=== PATIENT | female | born 1970 ===

== ENCOUNTER → 2023-12-20 12:52 | Outpatient (CLI) | payer BC, SELFPAY ==
--- NOTE | 2023-12-20 12:55 | DI.RAD_ITS ---
Exam(s) XR FINGER RT INDEX EXAM: XR FINGER RT INDEX CLINICAL HISTORY: M79.644 Pain in right fingers,index. TECHNIQUE: 2D digital imaging was performed. COMPARISON: No exams were available for comparison FINDINGS: 3 views No evidence of acute fracture or dislocation. No radiopaque foreign body. No osseous lesions nor er osions. IMPRESSION: No significant osseous findings in the 2nd-index finger. DATA REPOSITORY: RADIATION DOSE DELIVERED:
== END ==
PROVIDERS: Visit Provider Nurse Practitioner Family
DX: M79.644 Pain in right finger(s) (principal)
CPT/HCPCS: 73140

== ENCOUNTER 2023-12-25 18:25 | Emergency (ER) | payer BC, SELFPAY ==
[2023-12-25 18:28] VITALS: BP 142/84; PULSE 61; RESP 16; TEMP 36.7; O2SAT 98
--- NOTE | 2023-12-25 18:51 | ED.GENADUL_ITS ---
HPI General Mode of arrival: ambulatory . Date/Time Provider Initiated Documentation: 12/25/23 18:26 . Limitations to Documentation: no limitations . Information obtained by: patient and RN notes reviewed . History of Present Illness 53 year old F presents to the emergency department with the chief complaint of Headache, secondary to trauma, described as moderate, Quality is described as aching, and is localized to the head. Patient reports no radiation. Patient started experiencing this week(s) (1) and it has been intermittent. No relieving factors improve symptom(s), Patient did receive the following treatments prior to arrival, NSAID (This morning) Related Data Home Medications Medication Instructions Recorded Confirmed escitalopram oxalate 10 mg tablet 10 mg PO DAILY 12/25/23 12/25/23 (Lexapro) omeprazole 20 mg capsule,delayed 20 mg PO DAILY 12/25/23 12/25/23 release trazodone 50 mg tablet 50 mg PO QHS 12/25/23 12/25/23 Allergies Allergy/AdvReac Type Severity Reaction Status Date / Time prednisone AdvReac Mild Other (See Verified 12/25/23 18:32 Comment) General Stated Complaint: Headache SOBIA: 3 Review of Systems Constitutional Constitutional: Denies body ache(s), Denies chills, Denies fever(s), Reports headache(s), Reports lethargy, Reports malaise and Denies weakness Eyes Eyes: Denies change in vision ENT Ears, Nose, Mouth, and Throat: Denies dizziness, Reports headache(s) and Denies disequilibrium Cardiovascular Cardiovascular: Denies chest pain and Denies syncope Gastrointestinal Gastrointestinal: Denies nausea and Denies vomiting Neurologic Neurologic: Reports as per HPI, Denies dizziness, Denies syncope, Reports headache(s), Denies sensory deficit, Denies paresthesias, Denies tremor(s), Denies disequilibrium and Denies weakness Exam Const General: cooperative, healthy appearing, no acute distress and well groomed Orientation: alert, awake and oriented x3 HENMT Ears: hearing grossly normal bilaterally and TM's normal bilaterally General nose exam: external nose abnormal nasal abrasion (Left side) Face and sinus: face symmetric and ecchymosis on the left maxilla, lower lip and chin Mouth: oral mucosae normal and moist mucous membranes Teeth and gingiva: dentition normal Throat: posterior oropharynx normal Eyes Visual Alonzo: normal visual alonzo by confrontation Alignment and Position: alignment normal Periorbital: periorbital findings normal Eyelids: eyelids normal Sclera: sclerae normal Cornea: corneas normal Pupils: PERRL EOM: EOM intact bilaterally Neck Neck: normal visual inspection, full ROM, no lymphadenopathy and no meningeal signs Resp Effort & Inspection: normal respiratory effort and able to speak in complete sentences Auscultation: clear to auscultation bilaterally Cardio Rate: regular rate Rhythm: regular rhythm Heart Sounds: S1 normal and S2 normal Neuro General: patient alert, patient awake, patient oriented x3, gait normal, tone normal, moves all extremities, CN's II-XI intact bilaterally and not confused Cognition: normal cognition Speech: speech normal Motor: muscle tone normal throughout, strength 5/5 throughout, no movement abnormalities noted and no fasciculations Sensory Exam: no sensory deficits noted Coordination: [id number] test normal, Does not sway with eyes open, rapid alternating movement UE normal and rapid alternating movement LE normal Course Vital Signs Vital signs: Vital Signs Temperature 36.7 C 12/25/23 18:28 Pulse 61 12/25/23 18:28 Respiratory Rate 16 12/25/23 18:28 Blood Pressure 142/84 H 12/25/23 18:28 Pulse Oximetry 98 12/25/23 18:28 Temperature 36.7 C 12/25/23 18:28 Pulse 61 12/25/23 18:28 Respiratory Rate 16 12/25/23 18:28 Blood Pressure 142/84 H 12/25/23 18:28 Pulse Oximetry 98 12/25/23 18:28 Oxygen Delivery Method Room Air 12/25/23 18:28 Oxygen Flow Rate 0 12/25/23 18:28 Medical Decision Making Patient presenting to the emergency department for chief complaint of head injury and headache. Patient reports 1 week ago she was skiing and suffered a head injury. She went to the urgent care and they thought she had a mild concussion but had okay neurological exam at that time. Patient took 1 day off of work and returned to work with noting significant increase in fatigue and need of napping even while at work, some mild delayed cognition, and today has developed a headache with even more fatigue. Patient denies any numbness tingling, extremity deficiencies or weakness, patient denies any contributing past medical history,. Physical exam is positive for facial ecchymosis and some tenderness over areas of ecchymosis, normal cranial nerve exam, normal neuroexam, otherwise unremarkable exam. Will plan on performing head face and neck CT imaging given mechanism of injury reported by patient along with significant facial ecchymosis. Otherwise we will treat with Toradol and IV fluids. I suspect postconcussive symptoms being greatest differential but also considered intracranial injury, facial bone fracture. Review of radiological imaging along with radiologist interpretation shows no acute findings. Patient reassessed and did state improvement of symptoms. Discussed conservative management along with both physical and mental rest over the next 3 days and then to slowly increase activity as tolerated as I feel this is why she did have some worsening of symptoms. After discussion of diagnosis and plan of care patient has no further needs, questions, or concerns and states clear understanding to return to the emergency department for any worsening symptoms. This documentation was generated using [employer] dictation system, please disregard any oddities of phrase or misspellings. Imaging Data Radiologic Study: Imaging: CT Scan Radiologist's impression: Exam(s) PROCEDURE INFORMATION: Exam: CT Head Without Contrast Exam date and time: 12/25/2023 7:36 PM Age: 53 years old Clinical indication: Injury or trauma; Fall; Blunt trauma (contusions or hematomas); Consciousness not specified; Other: Lip; Injury date: 12/25/23; Injury details: Fell on face skiing TECHNIQUE: Imaging protocol: Computed tomography of the head without contrast. Radiation optimization: All CT scans at this facility use at least one of these dose optimization techniques: automated exposure control; mA and/or kV adjustment per patient size (includes targeted exams where dose is matched to clinical indication); or iterative reconstruction. COMPARISON: No relevant prior studies available. FINDINGS: Brain: No acute intracranial hemorrhage, mass-effect, midline shift, or extra-axial collection is seen. The carson white matter differentiation appears preserved. Cerebral ventricles: The ventricular system and basilar cisterns appear appropriate in size and configuration. Paranasal sinuses: CT imaging through the facial bones was obtained concurrently and has been dictated separately. Mastoid air cells: The mastoid air cells appear well-aerated. Auditory system: The middle ear cavities appear clear. Bones/joints: The bony calvarium appears intact. No depressed skull fracture is seen. Soft tissues: No gross focal scalp hematoma is seen. IMPRESSION: No acute intracranial hemorrhage or depressed skull fracture. PROCEDURE INFORMATION: Exam: CT Maxillofacial Without Contrast Exam date and time: 12/25/2023 7:36 PM Age: 53 years old Clinical indication: Injury or trauma; Fall; Blunt trauma (contusions or hematomas); Consciousness not specified; Other: Lip; Injury date: 12/25/23; Injury details: Fell on face skiing TECHNIQUE: Imaging protocol: Computed tomography of the face without contrast. Radiation optimization: All CT scans at this facility use at least one of these dose optimization techniques: automated exposure control; mA and/or kV adjustment per patient size (includes targeted exams where dose is matched to clinical indication); or iterative reconstruction. COMPARISON: No relevant prior studies available. FINDINGS: Orbital cavities: The globes and intraorbital structures appear grossly intact. Bones/joints: No acute facial fracture is seen. Paranasal sinuses: The paranasal sinuses appear well aerated. No air-fluid levels are seen. Soft tissues: No gross focal soft tissue hematoma is seen in the face. Nasal cavity: There is minimal leftward deviation of the nasal septum. IMPRESSION: No acute facial fracture is seen. PROCEDURE INFORMATION: Exam: CT Cervical Spine Without Contrast Exam date and time: 12/25/2023 7:36 PM Age: 53 years old Clinical indication: Injury or trauma; Fall; Blunt trauma (contusions or hematomas); Consciousness not specified; Other: Lip; Injury date: 12/25/23; Injury details: Fell on face skiing TECHNIQUE: Imaging protocol: Computed tomography of the cervical spine without contrast. Radiation optimization: All CT scans at this facility use at least one of these dose optimization techniques: automated exposure control; mA and/or kV adjustment per patient size (includes targeted exams where dose is matched to clinical indication); or iterative reconstruction. COMPARISON: No relevant prior studies available. FINDINGS: Bones/joints: No acute cervical fracture or malalignment is seen. C2-C3: Disc height preserved. No significant cervical stenosis or foraminal narrowing. C3-C4: Small broad-based posterior disc bulge. No significant cervical stenosis or left-sided foraminal narrowing. Mild uncovertebral hypertrophy on the right with mild right-sided foraminal narrowing. C4-C5: Mild loss of disc height. Mild posterior osteophytic ridging. No significant central canal narrowing or significant neural foraminal narrowing. C5-C6: Mild loss of disc height. Mild posterior osteophytic ridging. Small broad-based posterior disc bulge, eccentric to the right, image 290 of series 16. No significant central canal narrowing. No significant foraminal narrowing. C6-C7: Disc height relatively preserved. Mild posterior osteophytic ridging with mild bilateral uncovertebral hypertrophy. No significant cervical stenosis. No significant foraminal narrowing. C7-T1: Disc height preserved. No significant cervical stenosis or foraminal narrowing. Thyroid: Normal-sized thyroid gland. Lungs: The lung apices appear clear. Soft tissues: Within the limits of the exam, no gross soft tissue fluid collection is seen in the neck. IMPRESSION: No acute cervical fracture or malalignment is seen. Dictated and Authenticated by: Dino Levy MD. Quality:SDOH Health Related Social Needs: No Data to Display PFSH All Active Problems (Updated 12/25/23 @ 20:15 by Vincent Daly NP) Concussion (Acute) Social History Smoking/Tobacco Use Status: Never Smoking risk assessment performed?: Yes Alcohol Intake: current Alcohol Intake frequency: a few times a week Substance use type: does not use Do you feel safe at home: Yes Do you feel safe in your relationship?: Yes Discharge Plan Disposition Patient Disposition: Home Discharge Details Clinical Impression: Concussion Primary Care Provider: Unknown,Unknown ED Provider: Vincent Daly Home Meds and New Rx's Prescriptions: Continued escitalopram oxalate [Lexapro] 10 mg tablet 10 mg PO DAILY trazodone 50 mg tablet 50 mg PO QHS omeprazole 20 mg capsule,delayed release(DR/EC) 20 mg PO DAILY Discharge Instructions Instructions: Concussion (ED) Additional Instructions: You may continue to take tril-xhn-vcjptoa pain medication as needed for discomfort. Please stay well-hydrated and get both physical and mental rest over the next 3 days and then slowly increase activities as tolerated. If you have any new or significant worsening of symptoms return to the emergency department for reassessment otherwise follow-up with primary care provider if you are not improving Stand Alone Forms: Work Release Referrals: Primary Care Provider [Outside] - 5 days (If not improving) Discharge Data Discharge Date/Time-TO BE ENTERED AT DEPARTURE: 12/25/23 20:33
[2023-12-25] MEDS: Normal Saline 1,000 ML 1000 ML IV (19:05)
[2023-12-25] MEDS: Ketorolac 15 MG/ML VIAL IVP (19:06)
--- NOTE | 2023-12-25 19:45 | DI.CT_ITS ---
Exam(s) CT HEAD CERV SPINE FACIAL WO EXAM: CT HEAD CERV SPINE FACIAL WO CLINICAL HISTORY: facial/head trauma. TECHNIQUE: Imaging Protocol: Axial computed tomography images with coronal and sagittal reformatted images were created and reviewed COMPARISON: No exams were available for comparison FINDINGS: CT Head: Ventricles and Extra axial spaces: Normal in size and morphology for the patient's age. Hemorrhage: None. Cerebral parenchyma: No evidence of acute hemorrhage or acute infarct. Midline shift: None. Brainstem/Cerebellum: Normal. Calvarium: Normal. Visualized Paranasal sinuses/Mastoids: Clear. Soft Tissues: Unremarkable. CT Face: Facial Bones: No fracture is noted in facial bones. Sinuses and Mastoids: Unremarkable. Globes, extraocular muscles, optic nerves and retrobulbar fat: Normal. Upper aerodigestive tract: Normal. Mandible and bilateral temporomandibular joints: Normal. Soft tissues: No visible hematoma. CT Cervical Spine: Bones: No acute fracture or subluxation. Mild degenerative changes. Soft Tissues: Unremarkable. Lung Apices: Clear. IMPRESSION: 1. No acute intracranial process. 2. No acute fracture or subluxation in the cervical spine. 3. No acute facial fracture. RADIATION DOSE DELIVERED: Total DLP DATA REPOSITORY: All CT scans at this facility are submitted to the National Radiology Data Registry (NRDR) Dose Index Registry (DIR) with the [employer] (A[employer]). RADIATION OPTIMIZATION: All CT scans at this facility use at least one of these dose optimization te chniques: automated exposure control; mA and/or kV adjustment per patient size (includes targeted exa ms where dose is matched to clinical indication); or iterative reconstruction.
--- NOTE | 2023-12-25 20:00 | DI.VRAD_ITS ---
PROCEDURE INFORMATION: Exam: CT Head Without Contrast Exam date and time: 12/25/2023 7:36 PM Age: 53 years old Clinical indication: Injury or trauma; Fall; Blunt trauma (contusions or hematomas); Consciousness not specified; Other: Lip; Injury date: 12/25/23; Injury details: Fell on face skiing TECHNIQUE: Imaging protocol: Computed tomography of the head without contrast. Radiation optimization: All CT scans at this facility use at least one of these dose optimization techniques: automated exposure control; mA and/or kV adjustment per patient size (includes targeted exams where dose is matched to clinical indication); or iterative reconstruction. COMPARISON: No relevant prior studies available. FINDINGS: Brain: No acute intracranial hemorrhage, mass-effect, midline shift, or extra-axial collection is seen. The carson white matter differentiation appears preserved. Cerebral ventricles: The ventricular system and basilar cisterns appear appropriate in size and configuration. Paranasal sinuses: CT imaging through the facial bones was obtained concurrently and has been dictated separately. Mastoid air cells: The mastoid air cells appear well-aerated. Auditory system: The middle ear cavities appear clear. Bones/joints: The bony calvarium appears intact. No depressed skull fracture is seen. Soft tissues: No gross focal scalp hematoma is seen. IMPRESSION: No acute intracranial hemorrhage or depressed skull fracture. PROCEDURE INFORMATION: Exam: CT Maxillofacial Without Contrast Exam date and time: 12/25/2023 7:36 PM Age: 53 years old Clinical indication: Injury or trauma; Fall; Blunt trauma (contusions or hematomas); Consciousness not specified; Other: Lip; Injury date: 12/25/23; Injury details: Fell on face skiing TECHNIQUE: Imaging protocol: Computed tomography of the face without contrast. Radiation optimization: All CT scans at this facility use at least one of these dose optimization techniques: automated exposure control; mA and/or kV adjustment per patient size (includes targeted exams where dose is matched to clinical indication); or iterative reconstruction. COMPARISON: No relevant prior studies available. FINDINGS: Orbital cavities: The globes and intraorbital structures appear grossly intact. Bones/joints: No acute facial fracture is seen. Paranasal sinuses: The paranasal sinuses appear well aerated. No air-fluid levels are seen. Soft tissues: No gross focal soft tissue hematoma is seen in the face. Nasal cavity: There is minimal leftward deviation of the nasal septum. IMPRESSION: No acute facial fracture is seen. PROCEDURE INFORMATION: Exam: CT Cervical Spine Without Contrast Exam date and time: 12/25/2023 7:36 PM Age: 53 years old Clinical indication: Injury or trauma; Fall; Blunt trauma (contusions or hematomas); Consciousness not specified; Other: Lip; Injury date: 12/25/23; Injury details: Fell on face skiing TECHNIQUE: Imaging protocol: Computed tomography of the cervical spine without contrast. Radiation optimization: All CT scans at this facility use at least one of these dose optimization techniques: automated exposure control; mA and/or kV adjustment per patient size (includes targeted exams where dose is matched to clinical indication); or iterative reconstruction. COMPARISON: No relevant prior studies available. FINDINGS: Bones/joints: No acute cervical fracture or malalignment is seen. C2-C3: Disc height preserved. No significant cervical stenosis or foraminal narrowing. C3-C4: Small broad-based posterior disc bulge. No significant cervical stenosis or left-sided foraminal narrowing. Mild uncovertebral hypertrophy on the right with mild right-sided foraminal narrowing. C4-C5: Mild loss of disc height. Mild posterior osteophytic ridging. No significant central canal narrowing or significant neural foraminal narrowing. C5-C6: Mild loss of disc height. Mild posterior osteophytic ridging. Small broad-based posterior disc bulge, eccentric to the right, image 290 of series 16. No significant central canal narrowing. No significant foraminal narrowing. C6-C7: Disc height relatively preserved. Mild posterior osteophytic ridging with mild bilateral uncovertebral hypertrophy. No significant cervical stenosis. No significant foraminal narrowing. C7-T1: Disc height preserved. No significant cervical stenosis or foraminal narrowing. Thyroid: Normal-sized thyroid gland. Lungs: The lung apices appear clear. Soft tissues: Within the limits of the exam, no gross soft tissue fluid collection is seen in the neck. IMPRESSION: No acute cervical fracture or malalignment is seen. Dictated and Authenticated by: Dino Levy MD. Ordering:JOSE Kaur MD
== END 2023-12-25 20:33 | disposition home or self-care (01) ==
PROVIDERS: Emergency Provider Nurse Practitioner Family
DX: S06.0X0A Concussion without loss of consciousness, initial encounter (principal)
CPT/HCPCS: 96361; 96374; 99284; 70450; 70486; 72125; J1885

== ENCOUNTER 2024-03-23 15:52 | Outpatient (REF) | payer BC, SELFPAY ==
[2024-03-23 14:38] LABS: HCT 43.9 % (36.0-46.0); HGB 14.4 g/dL (11.2-15.7); MCH 29.7 pg (27.0-33.0); MCHC 32.8 % (32.0-36.0); MCV 91 fL (80-95); MPV 11.5 fL (8.0-11.0); Platelet Count 222 10^3/uL (130-400); RBC 4.85 10^6/uL (3.93-5.22); RDW 12.7 % (11.7-14.6); RDW-SD 42.7 fL; WBC 5.34 10^3/uL (4.4-10.8)
[2024-03-23 14:59] LABS: Anion Gap 7.1 mmol/L (3-11); BUN 18 mg/dL (7-18); CO2 29.9 mmol/L (21.0-32.0); CREATININE 0.9 mg/dL (0.55-1.02); Calcium 9.6 mg/dL (8.5-10.1); Calculated LDL 110 mg/dL (<100); Chloride 105 mmol/L (98-107); Cholesterol 191 mg/dL (<200); Glucose 100 mg/dL (74-106); HDL Cholesterol 65 mg/dL (40-60); Potassium 4.5 mmol/L (3.5-5.1); Sodium 142 mmol/L (136-145); Triglyceride 82 mg/dL (<150)
[2024-03-24 09:22] LABS: FSH 83.1 mIU/mL (See Note)
[2024-03-24 09:58] LABS: Hepatitis C Ab w Rflx HCV PCR Negative (Negative)
[2024-03-24 10:11] LABS: HIV-1/2 Ag & Ab Screen Negative (Negative)
== END 2024-03-23 15:53 | disposition home or self-care (01) ==
LOC: NCHCN 15:52
PROVIDERS: Visit Provider Family Medicine
DX: K40.90 Unilateral inguinal hernia, without obstruction or gangrene, not specified as recurrent (principal); N91.2 Amenorrhea, unspecified; D64.9 Anemia, unspecified; Z13.220 Encounter for screening for lipoid disorders; Z11.59 Encounter for screening for other viral diseases
CPT/HCPCS: 80048; 80061; 85027; 86803; 87389; 83001

== ENCOUNTER → 2024-05-08 02:01 | Outpatient (CLI) | payer BC, SELFPAY ==
--- NOTE | 2024-05-08 | DI.MAMMO_ITS ---
Exam(s) MAMMO SCREENING EXAM: MAMMO SCREENING CLINICAL HISTORY: SCREENING, Z12.31 TECHNIQUE: Bilateral full field digital CC and MLO mammographic images were obtained with 3D tomosyn thesis and utilizing computer aided detection (CAD). COMPARISON: Available for comparison. FINDINGS: Masses/Architectural Distortion: There is again seen a nodule in the right breast with a biopsy clip in the retroareolar region. This is stable. No new nodules. No areas of architectural distortion. Microcalcifications: No suspicious pleomorphic-type are seen. Skin Thickening/Nipple Retraction: None. IMPRESSION: 1. No significant interval change with no specific features of malignancy noted. 2. Unless there is more urgent need, screening mammography is recommended, as per [employer] guidelines. BI-RADS Category 2 - Benign Findings Breast Density - Category C - Heterogeneously dense Breast density category C or D implies that the patient has dense breast tissue. Dense breast tissue is very common and is not abnormal but dense breast tissue can make it harder to find cancer on a ma mmogram. Also, dense breast tissue may increase their breast cancer risk. This information about the result of the mammogram report was provided to the patient to raise their awareness. Use this report when you speak with the patient about their risks for breast cancer, which includes their family hist ory. At that time, you may recommend for more screening tests (Ultrasound or MRI) as they might be us eful based on their risk. A negative radiographic report should not delay biopsy if a dominant or clinically suspicious mass is present. Up to ten percent of cancers are not identified on mammography. A negative report may reinforce clinical impression. Adenosis and dense breasts may obscure an underlying neoplasm. False positive reports average 6 to 10%. Patient will receive a letter notifying them of these results.
== END ==
PROVIDERS: Visit Provider Family Medicine
DX: Z12.31 Encounter for screening mammogram for malignant neoplasm of breast (principal); R92.333 Mammographic heterogeneous density, bilateral breasts
CPT/HCPCS: 77063; 77067

== ENCOUNTER 2024-06-26 21:14 | Outpatient (REF) | payer BC, SELFPAY ==
--- OUTSIDE RECORDS SUMMARY | 2024-06-26 21:17 | XMS_ITS | Encounter Summary ---
Author Organization [facility]ly [facility], Later [facility] Address [facility] [place] [address] Care Team Providers Care Hemodialysis Charge Nurse Name Role Phone Skye Nicole MD Primary Care Provider [phone] Reason for Visit * Reason Comments Establish Care * Consultation (Routine) - Authorized Specialty Diagnoses / Procedures Referred By Contac t Referred To Contact General Surgery Diagnoses Direct left inguinal hernia Unilateral inguinal hernia without obstruction or gangrene, recurrence not specified ? SURGICAL INTERVENTION NEEDED PLEASE SCHED WITHIN 3-4 WEEKS Skye Nicole MD [address] [place] [address] [facility] Gen Surgery [address] [place] [address] Referral ID Status Reason Start Date Expiration Date Visits Requested Visits Authorized [id number] Authorized Consult, Test & Treat PCP Updated and/or Approved 03/31/2024 03/31/2025 6 6 Encounter Details Date Type Department Care Team (Late st Contact Info) Description 04/11/2024 10:30 AM EDT Office [place] [address] Ruthy Calvin MD [facility] [place] [address] Non-recurrent unilateral inguinal hernia without obstruction or gangrene Social History Tobacco Use Types Packs/Day Years Used Date Smoking Tobacco: Never Assessed Sex and Gender Information Value Date Recorded Sex Assigned at Female 2024 10:36 AM EDT Gender Identity Female 2024 10:36 AM EDT Sexual Orientation Not on file documented as of this encounter Last Filed Vital Signs Vital Sign Reading Time Taken Comments Blood Pressure 109/69 04/11/2024 10:30 AM EDT Pulse 66 04/11/2024 10:30 AM EDT Temperature - - Respiratory Rate - - Oxygen Saturation 99% 04/11/2024 10:30 AM EDT Inhaled Oxygen Concentration - - Weight 65.8 kg (145 lb) 04/11/2024 10:30 AM EDT Height 165.1 cm (5' 5) 04/11/2024 10:30 AM EDT Body Mass Index 24.13 04/11/2024 10:30 AM EDT documented in this encounter Progress Notes * Ruthy Calvin MD - 04/11/2024 10:30 AM EDT [facility] General Surgery History and Physical History of Present Illness: Nabeel Brower is a 54 y.o. female referred by Dr. Skye Nicole for an inguinal hernia. Ms. Brower does not remember a particular inciting incident. She says that about a year ago she was in the shower and noticed a bulge. She is quite active and bikes a lot. She has been told that perhaps it is from one of these activities. She has not had any obstructive episodes. It is reducible. She denies pain. She previously saw a surgeon who recommended a repair. However she moved and did not end up having surgery. 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 Past Surgical History: Past Surgical History: Procedure Laterality Date SECTION x2 MYOMECTOMY Medications: Current Outpatient Medications on File Prior to Visit Medication Sig Dispense Refill traZODone (Desyrel) 50 mg tablet Take 50 mg by mouth nightly. escitalopram (Lexapro) 10 mg tablet Take 10 mg by mouth daily. No current facility-administered medications on file prior to visit. Allergies: Prednisone Family History: No family history on file. No history of bleeding disorders, clotting disorders, or complications from anesthesia. Social History: Review of Systems: A 10 point review of systems was performed. Pertinent positives and negatives are listed in the above HPI. All other systems are negative. Physical Exam: Vital Signs: BP 109/69 (BP Location (NBP): Right arm, Patient Position: Sitting, BP Cuff Sizes: Adult (25-34 cm)) Pulse 66 Ht 165.1 cm (5' 5) Wt 65.8 kg (145 lb) SpO2 99% BMI 24.13 kg/m?? General appearance: Alert and oriented, appears stated age, well groomed HEENT: No scleral icterus, normocephalic, atraumatic Neck: Trachea midline Skin: No jaundice Heart: Regular rate and rhythm Lungs: Symmetric chest rise, no distress, clear breath sounds bilaterally Abdomen: Non distended, soft, non tender to palpation, left sided reducible inguinal hernia, no right inguinal hernia. Extremities: Moves all four extremities, no gross deformity. Assessment and Recommendation: A 54 y.o.-old female with a left inguinal hernia. The patient was educated on the natural history of hernias and approaches for repair. Nabeel Brower was educated on the indications, risks, and benefits of surgery. she understands these risks include but are not limited to general risks such as OH, stroke, PE, DVT and even , andrisks directly related to surgery such as hernia recurrence, chronic pain, infection, bleeding, andpossibility of surrounding organ injury. We discussed what to expect after surgery including lifting restrictions of no more than 20 lbs for 4 weeks. She would like to discuss with her and will call or message us when she is ready to schedule surgery. Will plan on a laparoscopic vs robotic left possible right inguinal hernia repair with mesh. Thank you for the referral and for allowing me to participate in the care of Nabeel Brower. Ruthy Calvin MD, FACS associate professor of medicine Division of Minimally Invasive Surgery [phone] * Amita Fishman - 04/11/2024 10:30 AM EDTSjumana: Asymptomatic Direct L Inguinal Hernia [facility] General Surgery History and Physical History of Present Illness: Nabeel Brower is a 54 y.o. 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 Skye Nicole in [place], [place] for an asymptomatic direct L inguinal hernia. Ms. Brower first noticed a bulge in the L groin region about one year ago while showering. The bulge disappears when she lies down, and has not caused any pain in the past nor present. She is not experiencing any nausea/vomiting, diarrhea/constipation, or other obstructive symptoms, except for some reflux which began long before she noticed her hernia during her first around 15 years ago. Ultrasound from 05/14/22 revealed a L inguinal hernia containing fat medial to the inferior epigastric vessels, with bowel intermittently present on standing with Valsalva maneuver and neck measuring up to 1.[address] Ann for this issue at the [facility] who suspected her active lifestyle/biking may have contributed to the hernia. Dr. Ann recommended surgical repair, but [place] prior to follow up. 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 Past Surgical History: No past surgical history on file. See HPI Medications: Current Outpatient Medications on File Prior to Visit Medication Sig Dispense Refill traZODone (Desyrel) 50 mg tablet Take 50 mg by mouth nightly. escitalopram (Lexapro) 10 mg tablet Take 10 mg by mouth daily. No current facility-administered medications on file prior to visit. Allergies: Prednisone Family History: No family history on file. No history of bleeding disorders, clotting disorders, or complications from anesthesia. 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 Pertinent positives and negatives are listed in the above HPI. All other systems are negative. Physical Exam: Vital Signs: BP 109/69 (BP Location (NBP): Right arm, Patient Position: Sitting, BP Cuff Sizes: Adult (25-34 cm)) Pulse 66 Ht 165.1 cm (5' 5) Wt 65.8 kg (145 lb) SpO2 99% BMI 24.13 kg/m?? General appearance: Alert and oriented, appears stated age, well groomed HEENT: No scleral icterus, normocephalic, atraumatic Neck: Trachea midline Skin: No jaundice Heart: Regular rate and rhythm Lungs: Symmetric chest rise, no distress, clear breath sounds bilaterally Abdomen: Non distended, soft, non tender to palpation, some lipomatous regions but no visible scars, small reducible L inguinal hernia appreciated, no R inguinal hernia appreciated Extremities: Moves all four extremities, no gross deformity. Imaging: Ultrasound from 05/14/22 revealed a L inguinal hernia containing fat medial to the inferiorepigastric vessels, with bowel intermittently present on standing with Valsalva maneuver and neck measuring up to 1.6 cm Assessment and Recommendation: A 54 y.o.-old female with small, reducible L sided inguinal hernia, found to intermittently containbowel by US on 05/14/22. The patient was educated on the natural history of hernias, approaches for repair and we reviewed her imaging results together. Nabeel Brower was educated on the indications, risks, and benefits of surgery. She understands these risks include but are not limited to general risks such as OH, stroke, PE, DVT and even , andrisks directly related to surgery such as hernia recurrence, chronic pain (10%), infection, bleeding, and possibility of surrounding organ injury. We discussed what to expect after surgery including l ifting restrictions of no more than 20 lbs for 4 weeks. She would like to discuss timing of the procedure with her and will call us to schedule theprocedure when she is ready (laparoscopic or robotic repair with mesh placement). Thank you for the referral and for allowing me to participate in the care of Nabeel Brower. Amita Fishman [employer] [employer] [facility] MS-4 Minimally Invasive Surgery Service documented in this encounter Plan of Treatment Upcoming Encounters Date Type Department Care Team (Latest Contact Info) Description 09/05/2024 7:30 AM EDT Hospital Encounter [place] [address] Ruthy Calvin MD [facility] [place] [address] 09/05/2024 7:30 AM EDT - 09/05/2024 10:14 AM EDT Surgery [place] [address] Ruthy Calvin MD [facility] [place] [address] LAPAROSCOPIC HERNIA REPAIR, INITIAL INGUINAL (WRVU 6.36) 12/04/2024 3:30 PM EST Office Visit Dermatology at [address] [address] Helen Mary MD [facility] [address] [place] [address] Scheduled Orders Name Type Priority Associated Diagnoses Orde r Schedule SURGICAL CASE REQUEST NO POSTOP PAIN: LAPAROSCOPIC HERNIA REPAIR, INITIAL INGUINAL (WRVU 6.36) Procedures Routine Non-recurrent unilateral inguinal hernia without obstruction or gangrene One Time for 1 Occurrences starting 04/11/2024 until 04/11/2024 Scheduled Procedures Name Priority Associated Diagnoses Date/Ti me LAPAROSCOPIC HERNIA REPAIR, INITIAL INGUINAL (WRVU 6.36) Yes Non-recurrent unilateral inguinal hernia without obstruction or gangrene 09/05/2024 7:30 AM EDT MODIFIER MESH,BARD,3D MAX REG Yes Non-recurrent unilateral inguinal hernia without obstruction or gangrene 09/05/2024 7:30 AM EDT documented as of this encounter Visit Diagnoses Diagnosis Non-recurrent unilateral inguinal hernia without obstruction or gangrene Non-recurrent unilateral inguinal hernia without obstruction or gangrene documented in this encounter Care Teams Hemodialysis Charge Nurse Relationship Specialty Start Date End Date Skye Nicole MD [address] [place] [address] PCP - General Family Medicine 04/11/24 documented as of this encounter
--- OUTSIDE RECORDS SUMMARY | 2024-06-26 21:17 | XMS_ITS | Clinical Summary ---
Author Organization [facility] Address [facility] [place] [address] Care Team Providers Care Appliance Technician Name Role Phone Skye Nicole MD Primary Care Provider [phone] Allergies Active Allergy Reactions Criticality Noted Date Comments Prednisone Other (See Comments) 04/11/2024 Doesn't sleep Medications Medication Sig Dispensed Refills Start Date End Date Status traZODone (Desyrel) 50 mg tablet Take 50 mg by mouth nightly. Active escitalopram (Lexapro) 10 mg tablet Take 10 mg by mouth daily. Active Encounters Date Type Department Care Team Description 06/26/2024 1:45 PM EDT Office [place] [address] Ruthy Calvin MD Non-recurrent unilateral inguinal hernia without obstruction or gangrene 06/25/2024 Travel 04/11/2024 10:30 AM EDT Office [place] [address] Ruthy Calvin MD Non-recurrent unilateral inguinal hernia without obstruction or gangrene 2024 Travel 03/31/2024 Transcribe Orders eDH Incoming Referrals [phone] Skye Nicole MD Direct left inguinal hernia; Unilateral inguinal hernia without obstruction or gangrene, recurrence not specified 03/31/2024 Transcribe Orders eDH Incoming Referrals [phone] Skye Nicole MD Disorder of skin and subcutaneous tissue from Last 3 Months Social History Tobacco Use Types Packs/Day Years Used Date Smoking Tobacco: Never Assessed Sex and Gender Information Value Date Recorded Sex Assigned at Female 2024 10:36 AM EDT Gender Identity Female 2024 10:36 AM EDT Sexual Orientation Not on file Last Filed Vital Signs Vital Sign Reading Time Taken Comments Blood Pressure 109/69 04/11/2024 10:30 AM EDT Pulse 66 04/11/2024 10:30 AM EDT Temperature 36.8 ??C (98.2 ??F) 06/26/2024 2:01 PM ED T Respiratory Rate - - Oxygen Saturation 99% 04/11/2024 10: 30 AM EDT Inhaled Oxygen Concentration - - Weight 68.4 kg (150 lb 14.4 oz) 06/26/2024 2:01 PM EDT Height 165.1 cm (5' 5) 06/26/2024 2:01 PM EDT Body Mass Index 25.11 06/26/2024 2:01 PM EDT Plan of Treatment Upcoming Encounters Date Type Department Care Team (Latest Contact Info) Description 09/05/2024 7:30 AM EDT Hospital Encounter [place] [address] Ruthy Calvin MD [facility] [place] [address] 09/05/2024 7:30 AM EDT - 09/05/2024 10:14 AM EDT Surgery [place] [address] Ruthy Calvin MD [facility] [place] [address] LAPAROSCOPIC HERNIA REPAIR, INITIAL INGUINAL (WRVU 6.36) 12/04/2024 3:30 PM EST Office Visit Dermatology at [facility] [address] [address] Helen Mary MD [facility] DR SHAIN[address] [place] [address] Scheduled Procedures Name Priority Associated Diagnoses Date/Ti me LAPAROSCOPIC HERNIA REPAIR, INITIAL INGUINAL (WRVU 6.36) Yes Non-recurrent unilateral inguinal hernia without obstruction or gangrene 09/05/2024 7:30 AM EDT MODIFIER MESH,BARD,3D MAX REG Yes Non-recurrent unilateral inguinal hernia without obstruction or gangrene 09/05/2024 7:30 AM EDT Health Maintenance Due Date Last Done Comments CT Colonography 1972 Colonoscopy 1972 Colorectal Cancer Screening 1972 FIT DNA 1972 FIT 1972 Sigmoidoscopy (10 year) with FIT yearly 1972 Sigmoidoscopy 1972 HIV screen 1990 Hepatitis C Screening 1990 Hepatitis B vaccine (0-59 yrs) (1) 1991 Tdap adult 1991 Tetanus vaccine 1991 HPV test 2002 PAP Smear 2002 Breast Cancer Share Decision Needed 2012 Breast Cancer screening 2012 Diabetes Screening (HgbA1C or Glucose) 2012 Zoster vaccine (1 of 2) 2022 Covid-19 Vaccine (1 - season) 2023 Influenza (Flu) vaccine (1 o f 1 - Influenza standard series) 07/16/2024 Care Teams Appliance Technician Relationship Specialty Start Date End Date Skye Nicole MD [address] [place] [address] PCP - General Family Medicine 04/11/24
--- OUTSIDE RECORDS SUMMARY | 2024-06-26 21:17 | XMS_ITS | Encounter Summary ---
Author Organization [facility] [place] [address] Care Team Providers Care Legal Support Specialist Name Role Phone Unavailable Primary Care Provider Unavailabl e Encounter Details Date Type Department Care Team (Late st Contact Info) Description 12/25/2023 Ancillary Procedure [place] [phone] Juan Toussaint DDS [address] [place] [address] Social History Tobacco Use Types Packs/Day Years Used Date Smoking Tobacco: Never Assessed Sex and Gender Information Value Date Recorded Sex Assigned at Female 2024 10:36 AM EDT Gender Identity Female 2024 10:36 AM EDT Sexual Orientation Not on file documented as of this encounter Plan of Treatment Upcoming Encounters Date Type Department Care Team (Latest Contact Info) Description 09/05/2024 7:30 AM EDT Hospital Encounter [place] [address] Ruthy Calvin MD [facility] [place] [address] 09/05/2024 7:30 AM EDT - 09/05/2024 10:14 AM EDT Surgery [place] [address] Ruthy Calvin MD [facility] [place] [address] LAPAROSCOPIC HERNIA REPAIR, INITIAL INGUINAL (WRVU 6.36) 12/04/2024 3:30 PM EST Office Visit Dermatology at [facility] [address] [place] [address] Helen Mary MD [facility] [place] [address] Scheduled Procedures Name Priority Associated Diagnoses Date/Ti me LAPAROSCOPIC HERNIA REPAIR, INITIAL INGUINAL (WRVU 6.36) Yes Non-recurrent unilateral inguinal hernia without obstruction or gangrene 09/05/2024 7:30 AM EDT MODIFIER MESH,BARD,3D MAX REG Yes Non-recurrent unilateral inguinal hernia without obstruction or gangrene 09/05/2024 7:30 AM EDT documented as of this encounter Procedures Procedure Name Priority Date/Time Associated Diagnosis Comments FILM LIBRARY STORAGE ONLY CT HEAD AND SPINE Routine 12/25/2023 12:00 AM EST documented in this encounter Results * Film Library- Storage Only CT Head And Spine (12/25/2023 12:00 AM EST) Narrative [facility] - 01/03/2024 3:57 PM EST This exam is auto-finalizing. It's purpose is for storage only. Juan Toussaint DDS G FILM LIBRARY ORD ERABLES [place], [place] documented in this encounter Visit Diagnoses Not on filedocumented in this encounter
--- OUTSIDE RECORDS SUMMARY | 2024-06-26 21:17 | XMS_ITS | Encounter Summary ---
Author Organization [facility] Address [facility] [place] [address] Care Team Providers Care Consumer Loan Underwriter Name Role Phone Skye Nicole MD Primary Care Provider [phone] Reason for Visit * Reason Comments Follow-up Encounter Details Date Type Department Care Team (Late st Contact Info) Description 06/26/2024 1:45 PM EDT Office Visit [place] [address] Ruthy Calvin MD [facility] [place] [address] Non-recurrent unilateral inguinal hernia without obstruction or [...] Sign Reading Time Taken Comments Blood Pressure - - Pulse - - Temperature 36.8 ??C (98.2 ??F) 06/26/2024 2:01 PM ED T Respiratory Rate - - Oxygen Saturation - - Inhaled Oxygen Concentration - - Weight 68.4 kg (150 lb 14.4 oz) 06/26/2024 2:01 PM EDT Height 165.1 cm (5' 5) 06/26/2024 2:01 PM EDT Body Mass Index 25.11 06/26/2024 2:01 PM EDT documented in this encounter Progress Notes * Ruthy Calvin MD - 06/26/2024 1:45 PM EDT This appointment was scheduled in error. Mrs. Lees needed to schedule surgery and so met with our surgery schedulers. documented in this encounter Plan of Treatment Upcoming Encounters Date Type Department Care Team (Latest Contact Info) Description 09/05/2024 7:30 AM EDT Hospital Encounter [place] [address] Ruthy Calvin MD [facility] [place] [address] 09/05/2024 7:30 AM EDT - 09/05/2024 10:14 AM EDT Surgery [place] [address] Ruthy Calvin MD [facility] [place] [address] LAPAROSCOPIC HERNIA REPAIR, INITIAL INGUINAL (WRVU 6.36) 12/04/2024 3:30 PM EST Office Visit Dermatology at [address] [address] Helen Mary MD [facility] DR [place] [address] Scheduled Procedures Name Priority Associated Diagnoses Date/Ti [...] gangrene documented in this encounter Care Teams Consumer Loan Underwriter Relationship Specialty Start Date End Date Skye Nicole MD [address] [place] [address] PCP - General Family Medicine 04/11/24 documented as of this encounter
--- OUTSIDE RECORDS SUMMARY | 2024-06-26 21:17 | XMS_ITS | Clinical Summary ---
Author Organization [facility] Address [address] [place] [address] Care Team Providers Care Senior Oracle Soa Developer Name Role Phone Unavailable Primary Care Provider Unavailabl e Social History Tobacco Use Types Packs/Day Years Used Date Smoking Tobacco: Never Assessed Sex and Gender Information Value Date Recorded Sex Assigned at Not on file Gender Identity Not on file Sexual Orientation Not on file Plan of Treatment Health Maintenance Due Date Last Done Comments Hepatitis B Vaccine (1 of 3 - 19+ 3-dose series) 04/10 COVID-19 Vaccine (2022- season) 2023 Hepatitis C Screen Completed 03/23/2024 Procedures Procedure Name Priority Date/Time Associated Diagnosis Comments HEPATITIS C AB W REFLEX TO HCV RNA BY PCR Routine 03/23/2024 10:00 EDT from Last 3 Months or Most Recently Relevant to Health Maintenance Results * HEPATITIS C AB W REFLEX TO HCV RNA BY PCR (03/23/2024 10:00 EDT) Hep C Antibody Negative Negative 03/24/2024 9:54 EDT [facility] Blood VENOUS BLOOD / Unknown 03/23/2024 10:00 EDT 03/23/2024 22:18 EDT Provider Outr Resulting Lab CHEMISTRY & BLOOD GAS ORDERABLES [facility] [address] [place] [address] from Last 3 Months or Most Recently Relevant to Health Maintenance
--- OUTSIDE RECORDS SUMMARY | 2024-06-26 21:17 | XMS_ITS | Encounter Summary ---
Author Organization [facility] Address [address] [place] [address] Care Team Providers Care Train System Operator Name Role Phone Unavailable Primary Care Provider Unavailabl e Encounter Details Date Type Department Care Team (Late st Contact Info) Description 03/23/2024 Lab Requisition [facility] Pathology & Laboratory Medicine - [facility] [address], [place] [address] Outr Resulting Lab, Provider Social History Tobacco Use Types Packs/Day Years Used Date Smoking Tobacco: Never Assessed Sex and Gender Information Value Date Recorded Sex Assigned at Not on file Gender Identity Not on file Sexual Orientation Not on file documented as of this encounter Plan of Treatment Not on file documented as of this encounter Procedures Procedure Name Priority Date/Time Associated Diagnosis Comments HIV 1/2 ANTIGEN AND ANTIBODY, 4TH GENERATION Routine 03/23/2024 10:00 EDT documented in this encounter Results * HIV 1/2 ANTIGEN AND ANTIBODY, 4TH GENERATION (03/23/2024 10:00 EDT) HIV 1 and 2 Antibody/p24 Antigen, 4th Generation Negative Negative 03/24/2024 10:07 EDT [facility] Comment:If acute HIV-1 infec tion is suspected in a high risk patient, submit plasma specimen for HIV-1 RNA quantitation test. Blood VENOUS BLOOD / Unknown 03/23/2024 10:00 EDT 03/23/2024 22:18 EDT Narrative [facility] - 03/24/2024 10:07 EDT Fourth Generation assay performed on the Siemens Centaur XPT. Provider Outr Resulting Lab IMMUNOLOGY A ND SEROLOGY ORDERABLES [facility] [address] [place] [id number] documented in this encounter Visit Diagnoses Not on filedocumented in this encounter
--- OUTSIDE RECORDS SUMMARY | 2024-06-26 21:17 | XMS_ITS | Encounter Summary ---
Author Organization [facility] [place] [address] Care Team Providers Care Peer Counselor Name Role Phone Unavailable Primary Care Provider Unavailabl e Encounter Details Date Type Department Care Team (Latest Contact Info) Description 2024 Travel Social History Tobacco Use Types Packs/Day Years [...] AM EDT Hospital Encounter [place] [address] Ruthy Calvin MD [facility] [place] [address] 09/05/2024 7:30 AM EDT - 09/05/2024 10:14 AM EDT [place] [phone] Ruthy Calvin MD [facility] [place] [place] [address] LAPAROSCOPIC HERNIA REPAIR, INITIAL INGUINAL (WRVU 6.36) 12/04/2024 3:30 PM EST Office Visit Dermatology at [address] [place] [address] Helen Mary MD [facility] [place] [address] Scheduled Procedures Name Priority Associated Diagnoses Date/Ti me LAPAROSCOPIC HERNIA REPAIR, INITIAL INGUINAL (WRVU 6.36) Yes Non-recurrent unilateral inguinal hernia without obstruction or gangrene 09/05/2024 7:30 AM EDT MODIFIER MESH,BARD,3D MAX REG Yes Non-recurrent unilateral inguinal hernia without obstruction or gangrene 09/05/2024 7:30 AM EDT documented as of this encounter Visit Diagnoses Not on filedocumented in this encounter
--- OUTSIDE RECORDS SUMMARY | 2024-06-26 21:17 | XMS_ITS | Encounter Summary ---
[place] [address] Care Team Providers Care Dermatologist Managing Partner Name Role Phone Unavailable Primary Care Provider Unavailabl e Reason for Referral * Consultation (Urgent) - Authorized Specialty Diagnoses / Procedures Referred By Danuta loving Referred To Contact Maxillofacial Surgery Diagnoses Facial injury, subsequent encounter facial trauma, facial laceration, swollen upper palate, jaw pain Juan Toussaint DDS [address] [place] [address] [facility] [address] [place] [phone] Referral ID Status Reason Start Date Expiration Date Visits Requested Visits Authorized [id number] Authorized Consult, Test & Treat PCP Updated and/or Approved 01/03/2024 01/02/2025 1 1 Encounter Details Date Type Department Care Team (Late st Contact Info) Description 01/03/2024 Transcribe Orders eDH Incoming Referrals [phone] Juan Toussaint DDS [address] [place], [place] [address] Facial injury, subsequent encounter (Primary Dx) Social History Tobacco Use Types Packs/Day Years [...] AM EDT Hospital Encounter [place] [address] Ruthy Calvin MD [facility] [place] [address] 09/05/2024 7:30 AM EDT - 09/05/2024 10:14 AM EDT Surgery [place] [address] Ruthy Calvin MD [facility] [place] [address] LAPAROSCOPIC HERNIA REPAIR, INITIAL INGUINAL (WRVU 6.36) 12/04/2024 3:30 PM EST Office Visit Dermatology at [address] [address] Helen Mary MD [facility] [place] [address] Scheduled Procedures Name Priority Associated Diagnoses Date/Ti me LAPAROSCOPIC HERNIA REPAIR, INITIAL INGUINAL (WRVU 6.36) Yes Non-recurrent unilateral inguinal hernia without obstruction or gangrene 09/05/2024 7:30 AM EDT MODIFIER MESH,BARD,3D MAX REG Yes Non-recurrent unilateral inguinal hernia without obstruction or gangrene 09/05/2024 7:30 AM EDT Scheduled Referrals Name Type Priority Associated Diagnoses Order Schedule Referral to Maxillofacial Surgery Outpatient Referral Urgent Facial injury, subsequent encounter Ordered: 01/03/2024 documented as of this encounter Visit Diagnoses Diagnosis Facial injury, subsequent encounter- Primary Non-recurrent unilateral inguinal hernia without obstruction or gangrene documented in this encounter
--- OUTSIDE RECORDS SUMMARY | 2024-06-26 21:17 | XMS_ITS | Encounter Summary ---
Author Organization [facility] Address [address] [place] [address] Care Team Providers Care Side Stitching Machine Operator Name Role Phone Unavailable Primary Care Provider Unavailabl e Encounter Details Date Type Department Care Team (Late st Contact Info) Description 03/23/2024 Lab Requisition [facility] Pathology & Laboratory Medicine - [facility] [address] [place] [address] Outr Resulting Lab, Provider Social History Tobacco [...] RNA BY PCR Routine 03/23/2024 10:00 EDT FSH Routine 03/23/2024 10:00 EDT documented in this encounter Results * FSH (03/23/2024 10:00 EDT) FSH 83.1 See Note mIU/mL 03/24/2024 9:17 EDT [facility] Blood VENOUS BLOOD / Unknown 03/23/2024 10:00 EDT 03/23/2024 22:18 EDT Narrative [facility] - 03/24/2024 9:17 EDT NOTE: Female FSH Reference Ranges (Menstruating): PHYSIOLOGICAL STATUS ? REFERENCE RANGE ? Follicular (-12 to -4 days): ?? 2.5 - 10.2 mIU/mL Midcycle (-3 to +2 days): ?3.4 - 33.4 mIU/mL Luteal (+4 to +12 days): ? 1.5 - 9.1 mIU/mL Postmenopausal: ?23.0 - 116.3 mIU/mL Reference Ranges for pediatric non-menstruating female patients have not been established. Provider Outr Resulting Lab CHEMISTRY & BLOOD GAS ORDERABLES Performing Organization Address City/[facility] Co de Phone Number [facility] [address] [place] [address] * HEPATITIS C AB W REFLEX TO HCV RNA BY PCR (03/23/2024 10:00 EDT) Hep C Antibody Negative Negative 03/24/2024 9:54 EDT [facility] Blood VENOUS BLOOD / Unknown 03/23/2024 10:00 EDT 03/23/2024 22:18 EDT Provider Outr Resulting Lab CHEMISTRY & BLOOD GAS ORDERABLES Performing Organization Address [facility] Co de Phone Number [facility] [address] [place] [address] documented in this encounter Visit Diagnoses Not on filedocumented in this encounter
--- OUTSIDE RECORDS SUMMARY | 2024-06-26 21:17 | XMS_ITS | Referral Summary ---
Author Organization [facility] Address [address] [place] [address] Care Team Providers Care Field Marketing Associate Name Role Phone Unavailable Primary Care Provider Unavailabl e Social History Tobacco Use Types Packs/Day Years Used Date Smoking Tobacco: Never Assessed Sex and Gender Information Value Date Recorded Sex Assigned at Not on file Gender Identity Not on file Sexual Orientation Not on file Plan of Treatment Not on file Procedures Procedure Name Priority Date/Time Associated Diagnosis Comments HEPATITIS C AB W REFLEX TO HCV RNA BY PCR Routine 03/23/2024 10:00 EDT from Last 3 Months or Most Recently Relevant to Health Maintenance Results * HEPATITIS C AB W REFLEX TO HCV RNA BY PCR (03/23/2024 10:00 EDT) Hep C Antibody Negative Negative 03/24/2024 9:54 EDT [facility] Blood VENOUS BLOOD / Unknown 03/23/2024 10:00 EDT 03/23/2024 22:18 EDT Provider Outr Resulting Lab CHEMISTRY & BLOOD GAS ORDERABLES [facility] [address] [place] [address] from Last 3 Months or Most Recently Relevant to Health Maintenance
--- OUTSIDE RECORDS SUMMARY | 2024-06-26 21:17 | XMS_ITS | Encounter Summary ---
Author Organization [facility] [place] [address] Care Team Providers Care Construction Administrator Name Role Phone Unavailable Primary Care Provider Unavailabl e Reason for Referral * Consultation (Routine) - Authorized Specialty Diagnoses / Procedures Referred By Contdaya loving Referred To Contact Dermatology Diagnoses Disorder of skin and subcutaneous tissue Skye Nicole MD [address] [place] [address] [facility]at[facility] [address] [place] [address] Referral ID Status Reason Start Date Expiration Date Visits Requested Visits Authorized [id number] Authorized Consult, Test & Treat PCP Updated and/or Approved 03/31/2024 03/31/2025 6 6 Encounter Details Date Type Department Care Team (Latest Contact Info) Description 03/31/2024 Transcribe Orders eDH Incoming Referrals [phone] Skye Nicole MD [address] [place], [place] [id number] Disorder of skin and subcutaneous tissue Social History Tobacco Use Types Packs/Day Years [...] AM EDT Hospital Encounter [place] [address] Ruthy Calvin MD [facility] [place] [address] 09/05/2024 7:30 AM EDT - 09/05/2024 10:14 AM EDT [place] [address] Ruthy Calvin MD [facility] [place] [address] LAPAROSCOPIC HERNIA REPAIR, INITIAL INGUINAL (WRVU 6.36) 12/04/2024 3:30 PM EST Office Visit Dermatology at [address] [address] Helen Mary MD [facility] [place] [address] Scheduled Procedures Name Priority Associated Diagnoses Date/Ti me LAPAROSCOPIC HERNIA REPAIR, INITIAL INGUINAL (WRVU 6.36) Yes Non-recurrent unilateral inguinal hernia without obstruction or gangrene 09/05/2024 7:30 AM EDT MODIFIER MESH,BARD,3D MAX REG Yes Non-recurrent unilateral inguinal hernia without obstruction or gangrene 09/05/2024 7:30 AM EDT Scheduled Referrals Name Type Priority Associated Diagnoses Orde r Schedule Referral to Dermatology Outpatient Referral Routine Disorder of skin and subcutaneous tissue Ordered: 03/31/2024 documented as of this encounter Visit Diagnoses Diagnosis Disorder of skin and subcutaneous tissue Unspecified disorder of skin and subcutaneous tissue Non-recurrent unilateral inguinal hernia without obstruction or gangrene documented in this encounter
--- OUTSIDE RECORDS SUMMARY | 2024-06-26 21:17 | XMS_ITS | Encounter Summary ---
[place] [address] Care Team Providers Care Rn Case Mgr Name Role Phone Unavailable Primary Care Provider Unavailabl e Reason for Referral * Consultation (Routine) - Authorized Specialty Diagnoses / Procedures Referred By Danuta loving Referred To Contact General Surgery Diagnoses Direct left inguinal hernia Unilateral inguinal hernia without obstruction or gangrene, recurrence not specified ? SURGICAL INTERVENTION NEEDED PLEASE SCHED WITHIN 3-4 WEEKS Skye Nicole MD [address] [place] [address] [facility] [address] [address] Referral ID Status Reason Start Date Expiration Date Visits Requested Visits Authorized [id number] Authorized Consult, Test & Treat PCP Updated and/or Approved 03/31/2024 03/31/2025 6 6 Encounter Details Date Type Department Care Team (Latest Contact Info) Description 03/31/2024 Transcribe Orders eDH Incoming Referrals [phone] Skye Nicole MD [address] [place] [address] Direct left inguinal hernia; Unilateral inguinal hernia without obstruction or gangrene, recurrence not specified Social History Tobacco Use Types Packs/Day Years [...] AM EDT Hospital Encounter [place] [address] Ruthy Calvin MD [facility] [place] [address] 09/05/2024 7:30 AM EDT - 09/05/2024 10:14 AM EDT Surgery [place] [address] Ruthy Calvin MD [facility] [place] [address] LAPAROSCOPIC HERNIA REPAIR, INITIAL INGUINAL (WRVU 6.36) 12/04/2024 3:30 PM EST Office Visit Dermatology at [address] [address] Helen Mary MD [facility] [address] [place] [address] Scheduled Procedures Name Priority Associated Diagnoses Date/Ti pr LAPAROSCOPIC HERNIA REPAIR, INITIAL INGUINAL (WRVU 6.36) Yes Non-recurrent unilateral inguinal hernia without obstruction or gangrene 09/05/2024 7:30 AM EDT MODIFIER MESH,BARD,3D MAX REG Yes Non-recurrent unilateral inguinal hernia without obstruction or gangrene 09/05/2024 7:30 AM EDT Scheduled Referrals Name Type Priority Associated Diagnoses Orde r Schedule Referral to General Surgery Outpatient Referral Routine Direct left inguinal hernia Unilateral inguinal hernia without obstruction or gangrene, recurrence not specified Ordered: 03/31/2024 documented as of this encounter Visit Diagnoses Diagnosis Direct left inguinal hernia Unilateral inguinal hernia without obstruction or gangrene, recurrence not specified Non-recurrent unilateral inguinal hernia without obstruction or gangrene documented in this encounter
--- OUTSIDE RECORDS SUMMARY | 2024-06-26 21:17 | XMS_ITS | Encounter Summary ---
Author Organization [facility] [place] [address] Care Team Providers Care Reporting Manager Name Role Phone Skye Nicole MD Primary Care Provider [phone] Encounter Details Date Type Department Care Team (Latest Contact Info) Description 06/25/2024 Travel Social History Tobacco Use Types Packs/Day [...] AM EDT Hospital Encounter [place] [address] Ruthy Calvin MD [facility] [place] [address] 09/05/2024 7:30 AM EDT - 09/05/2024 10:14 AM EDT Surgery [place] [address] Ruthy Calvin MD [facility] [place] [address] LAPAROSCOPIC HERNIA REPAIR, INITIAL INGUINAL (WRVU 6.36) 12/04/2024 3:30 PM EST Office Visit Dermatology at [facility] [address] [place] [address] Helen Mary MD [facility] [place] [address] Scheduled Procedures Name Priority Associated Diagnoses Date/Ti me LAPAROSCOPIC HERNIA REPAIR, INITIAL INGUINAL (WRVU 6.36) Yes Non-recurrent unilateral inguinal hernia without obstruction or gangrene 09/05/2024 7:30 AM EDT MODIFIER MESH,BARD,3D MAX REG Yes Non-recurrent unilateral inguinal hernia without obstruction or gangrene 09/05/2024 7:30 AM EDT documented as of this encounter Visit Diagnoses Not on filedocumented in this encounter Care Teams Reporting Manager Relationship Specialty Start Date End Date Skye Nicole MD [address] [place] [address] PCP - General Family Medicine 04/11/24 documented as of this encounter
== END 2024-06-26 21:15 | disposition home or self-care (01) ==
LOC: LBN 21:14
PROVIDERS: Visit Provider Nurse Practitioner Family
DX: N30.01 Acute cystitis with hematuria (principal); R82.89 Other abnormal findings on cytological and histological examination of urine
CPT/HCPCS: 87086

== ENCOUNTER 2024-07-20 18:30 | Outpatient (REF) | payer BC, SELFPAY ==
[2024-07-20 15:23] LABS: Abs Immature Grans 0.02 10^3/uL (0.0-0.06); Absolute Basophil Count 0.03 10^3/uL (0.0-0.2); Absolute Eosinophil Count 0.06 10^3/uL (0.0-0.7); Absolute Monocyte Count 0.39 10^3/uL (0.1-0.8); Absolute Neutrophil Count 3.59 10^3/uL (1.2-6.7); Basophils % 0.5 %; Eosinophils % 0.9 %; HCT 40.4 % (36.0-46.0); HGB 13.2 g/dL (11.2-15.7); Immature Grans % 0.3 %; Lymphocytes % 37.9 %; MCH 30.1 pg (27.0-33.0); MCHC 32.7 % (32.0-36.0); MCV 92 fL (80-95); MPV 11.3 fL (8.0-11.0); Monocytes % 5.9 %; Neutrophils % 54.5 %; Platelet Count 193 10^3/uL (130-400); RBC 4.39 10^6/uL (3.93-5.22); RDW 13.1 % (11.7-14.6); RDW-SD 44.5 fL; WBC 6.59 10^3/uL (4.4-10.8)
[2024-07-20 15:29] LABS: C-Reactive Protein < 0.50 mg/dL (<or=0.5)
--- OUTSIDE RECORDS SUMMARY | 2024-07-20 18:35 | XMS_ITS | Encounter Summary ---
Author Organization [facility] Address [address] [place] [address] Care Team Providers Care Mercerizer Name Role Phone Unavailable Primary Care Provider Unavailabl e Encounter Details Date Type Department Care Team (Late st Contact Info) Description 03/23/2024 Lab Requisition [facility] Pathology & Laboratory Medicine - [facility] [address] [place] [address] Outr Resulting Lab, Provider Social History Tobacco [...] 83.1 See Note mIU/mL 03/24/2024 9:17 EDT [facility] Blood VENOUS BLOOD / Unknown 03/23/2024 10:00 EDT 03/23/2024 22:18 EDT Narrative [facility] - 03/24/2024 9:17 EDT NOTE: [...] & BLOOD GAS ORDERABLES Performing Organization Address City/[facility] Co de Phone Number [facility] [address] [place] [address] * HEPATITIS C AB W REFLEX TO HCV RNA BY PCR (03/23/2024 10:00 EDT) Hep C Antibody Negative Negative 03/24/2024 9:54 EDT [facility] Blood VENOUS BLOOD / Unknown 03/23/2024 10:00 EDT 03/23/2024 22:18 EDT Provider Outr Resulting Lab CHEMISTRY & BLOOD GAS ORDERABLES Performing Organization Address [facility] Co de Phone Number [facility] [address] [place] [address] documented in this encounter Visit Diagnoses Not on filedocumented in this encounter
--- OUTSIDE RECORDS SUMMARY | 2024-07-20 18:35 | XMS_ITS | Continuity of Care Document ---
Author Organization [place] [facility], [facility], [facility] Address [address] [place] [address] [address] [place] [address] Assessment No assessment recorded. Plan of Treatment Reminders Order Date Submit Date Provider Last Modified By Organization Details Last Modified Time Details Appointments Acute 20 2023 10:30A M Not available Not available Not available Annual Wellness Exam 2024 08:30A M Not available Not available Not available Lab urinalysi s, dipstick 2023 024 [email or web address] [facility], [address] [place] [address], [address], [place], [address], 06/26/2024 18:26:17 culture, urine + sensitivi ty 2023 024 [facility] (Registration ), [address] [place] [address] [place], [address], 06/28/2024 09:58:22 Referral None recorded. Procedures None recorded. Surgeries None recorded. Imaging None recorded. Medication Orders Macrobid 100 mg capsule 2023 024 [email or web address] [facility], [address] [place], [address], 07/20/2024 10:34:14 Macrobid 100 mg capsule 2023 024 [email or web address] [facility], [address] [place], [address], 07/20/2024 10:34:14 Patient TargetsNo targets recorded. Patient Instructions Encounter Date Encounter Id Patient Instructions Last Modified By Organization Details Last Modified Time 06/26/2024 [id number] Urinary Tract Infection (UTI) in Women: Care Instructions Not available 06/26/2024 18:21:43 Reason for Referral General Surgeon Referral for Inguinal hernia direct L inguinal hernia Referring Physician: Skye Nicole [facility], Encounter Date: 03/23/2024 Camera Supervisor Referral for S kin lesion Referring Physician: Skye Nicole [facility], Encounter Date: 03/23/2024 Results Created Date Observation Date Name Description Value Unit Range Abnormal Flag Note LastModifiedBy Organization Detail LastModifiedTime 06/26/20 24 06/26/2024 urina lysis , dipst ick Leukocytes Small Not Available [address], [address], 06/26/2024 18:15:52 06/26/20 24 06/26/2024 urina lysis , dipst ick Nitrite negati ve Not Available [address] [address], [place], [address], 06/26/2024 18:15:52 06/26/20 24 06/26/2024 urina lysis , dipst ick Urobilinogen .2 Not Available [address], [address], 06/26/2024 18:15:52 06/26/20 24 06/26/2024 urina lysis , dipst ick Protein 30 Not Available [address] [address], [place], [address], 06/26/2024 18:15:52 06/26/20 24 06/26/2024 urina lysis , dipst ick pH 6.5 Not Available [address], [place], [address], 06/26/2024 18:15:52 06/26/20 24 06/26/2024 urina lysis , dipst ick Blood Large Not Available [address], [place], [address], 06/26/2024 18:15:52 06/26/20 24 06/26/2024 urina lysis , dipst ick Specific Kersey 1.015 Not Available Chelsy [address], [place], [address], 06/26/2024 18:15:52 06/26/20 24 06/26/2024 urina lysis , dipst ick Ketone Negati ve Not Available [address], [place], [address], 06/26/2024 18:15:52 06/26/20 24 06/26/2024 urina lysis , dipst ick Bilirubin Negati ve Not Available [address], [place], [address], 06/26/2024 18:15:52 06/26/20 24 06/26/2024 urina lysis , dipst ick Glucose Negati ve Not Available [address], [place], [address], 06/26/2024 18:15:52 06/26/20 24 06/26/2024 urina lysis , dipst ick Appearance Clear Not Available Pastor bean [address], [place], [address], 06/26/2024 18:15:52 06/26/20 24 06/26/2024 urina lysis , dipst ick Color Pale Yellow Not Available [address], [place], [address], 06/26/2024 18:15:52 Result Notes None recorded. Problems Name Problem SNOMED Code Status Onset Date Resolution Date Notes Provider Name and Address Organization Details Recorded Time Anemia 152639871 Active 2023 LISA ARANGO RN null, [facility] 12:37:15 Vitamin D deficiency 09874376 Active 2023 LISA ARANGO RN null, [facility] 12:37:15 Gastroesoph ageal reflux disease 374532245 Active 2023 LISA ARANGO RN null, [facility] 12:37:15 Insomnia 207678205 Active 2023 LISA ARANGO RN null, [facility] 12:37:15 Inguinal hernia 873654988 Active 2023 ANDERS MCCLELLAN MA null, [facility] 14:57:53 Amenorrhea 94249788 Active [address], [place], [address], [facility] 09:55:28 Skin lesion 42608451 Active [address], [place], [address], [facility] 09:56:32 Anxiety 52065786 Active [address], [place], [address], [facility] 10:30:09 Rosacea 676966138 Active [address], [facility] [address], [facility] 4 09:27:46 Effusion of joint of left hand 4474055708838 09 Active [address], [facility] [address], [facility] 4 10:54:31 Problem Notes None recorded. Procedures Surgical History Date Name Laterality Status Provider Name and Address Organization Details Recorded Time 4 IUD Removal completed MD [address]en [address], [facility] [address], [facility] 06/30/2024 09:36:00 4 Date of Last Mammogram completed MD [address]en [address], [facility] [address] 06/30/2024 09:33:49 2 Date of Last Pap Smear completed MD [address], [facility] [address] 06/30/2024 09:33:20 2 Date of Last Colonoscopy completed MD [address], [facility] [address] 06/30/2024 09:34:12 biopsy of breast completed LISA ARANGO RN [facility] 12/10/2023 12:26:48 endoscopy completed ANDERS MCCLELLAN MA [facility], [facility] 03/23/2024 09:19:33 uterine myomectomy completed MD [address]en [address], [facility] [address] [place] [address] 03/23/2024 10:29:45 Imaging Results None recorded. Procedure Notes None recorded. Medical Equipment None Reported. Allergies Allergen ID Allergen Name Allergen Category Reaction Reaction Severity Criticality Documentation Date Start Date Code Code System Note Provider Name and Address Organization Details Recorded Time 11054 prednison e medicatio n Not available Not available Not available 12/20/2023 8640 RxNorm MEREDITH Shrestha [facility] 4 11:39:12 Medications Name Sig Start Date Stop Date Status Note LastModified by Organization Details LastModified Time trazodone 50 mg tablet TAKE ONE TABLET BY MOUTH EVERY NIGHT AT BEDTIME NEEDED active Not Available Not Available No t Available omeprazole 20 mg capsule,del ayed release Take 1 capsule every day by oral route. active Not Available Not Available No t Available cephalexin 500 mg tablet Take 1 tablet every 8 hours by oral route for 7 days. 2023 active Not Available Not Available Not Avai lable amoxicillin 875 mg-potassiu m clavulanate 125 mg tablet TAKE 1 TABLET BY MOUTH TWICE A DAY 03/23 completed Not Available Not Available Not Available oxycodone 5 mg tablet TAKE 1 TABLET (5 MG TOTAL) BY MOUTH EVERY 6 (SIX) HOURS NEEDED. PT. MAY REQUEST PARTIAL FILL 03/23 completed Not Available Not Available Not Available escitalopra m 10 mg tablet TAKE ONE TABLET BY MOUTH EVERY DAY active Not Available Not Available No t Available azelaic acid 15 % topical gel APPLY A THIN LAYER TO AFFECTED AREA(S) TWO TIMES A DAY active Not Available Not Available No t Available nitrofurant oin monohydrate /macrocryst als 100 mg capsule TAKE ONE CAPSULE BY MOUTH EVERY 12 HOURS FOR 5 DAYS 07/20 completed Not Available Not Available Not Available Vitals Date Recorded Body height Body mass index (BMI) Body weight Body temperature Respiratory rate Oxygen saturation Oxygen saturation in Arterial blood by Pulse oximetry Heart rate Systolic blood pressure Diastolic blood pressure Provider Name and Address Organization Details Last Updated DateTime 4 165.1 cm 25 kg/m2 53281.8 6 g 98.7 [degF] 18 /min 97 % 97 % 66 /min 110 mm[Hg] 69 mm[Hg] BEAR BARTH MA [facility] 4 18:02:11 Social History Question Answer Notes LastModified by Organizat ion Details LastModified Time Tobacco Smoking Status Never Smoker MEREDITH Shrestha, [place] - [facility]. 12/20/2023 11:39:31 Do You Have An Advance Directive? Yes Pretty Sure She Has Them But Will Take Paper Work Today Just In Case She Does Not. cooper Information not available 03/23/2024 Would You Say That, In General, Your Health Is Very Good Information not available 06/29/2024 Women Aged 18-50 - Would You Like To Become In The Next Year? (Female Patients Only) Yes [email or web address] Information not available 06/29/2024 How Often Does Anyone, Including Family, Physically Hurt You? Never [email or web address] Information not available 06/29/2024 How Often Does Anyone, Including Family, Insult Or Talk Down To You? Never [email or web address] Information no t available 06/29/2024 How Often Does Anyone, Including Family, Threaten You With Harm? Never [email or web address] Information not available 06/29/2024 How Often Does Anyone, Including Family, Scream Or Curse At You? Never [email or web address] Information not available 06/29/2024 Within The Past 12 Months, You Worried That Your Food Would Run Out Before You Got Money To Buy More. Never True [email or web address] Information n ot available 06/29/2024 Within The Past 12 Months, The Food You Bought Just Didn't Last And You Didn't Have Money To Get More. Never True [email or web address] Information n ot available 06/29/2024 How Hard Is It For You To Pay For The Very Basics Like Food, Housing, Medical Care, And Heating? Would You Say It Is: Not Hard At All [email or web address] Information not available 06/29/2024 In The Past 12 Months, Has Lack Of Reliable Transportation Kept You From Medical Appointments, Meetings, Work Or From Getting Things Needed For Daily Living? No Information not available 06/29/2024 What Is Your Housing Situation Today? I Have Housing. [email or web address] Information not available 06/29/2024 How Often In The Past Year Have You Used Marijuana (including Smoking, Vaping, Dabbing, Or Edibles)? Never [email or web address] Information not available 06/29/2024 How Often In The Past Year Have You Used Prescription Medications That Were Not Prescribed To You? Never [email or web address] Information n ot available 06/29/2024 How Often In The Past Year Have You Taken Your Own Prescription Medication More Than The Way It Was Prescribed Or For Different Reasons Than Its Intended Purpose? Never [email or web address] Information no t available 06/29/2024 How Often In The Past Year Have You Used Other Drugs (for Example, Heroin, Cocaine, Meth, Salvia, Inhalants)? Never Information not available 06/29/2024 Have You Ever Used IV Drugs? No [email or web address] Information not available 06/29/2024 Do You Have A Medical Power Of Green House Manager? Yes Information not available 03/23/2024 What Was The Date Of Your Most Recent Tobacco Screening? 03/23/2024 Information not available 03/23/2024 Has Tobacco Cessation Counseling Been Provided? No Information not available 03/23/2024 Do You Or Have You Ever Used Any Other Forms Of Tobacco Or Nicotine? No Information not available 03/23/2024 Sex: Female Functional Status None recorded. Mental Status None recorded. Family History Relationship Description Onset Age of this Age Resolved Age Notes Mother Transitional cell carcinoma of kidney Notes:Alcoholism and bipolar - maternal grandmother's side. Medical History No medical history recorded. Gynecological History Statement/Question Response Abnormal Pap N Date of Last Pap Smear 09/02/2022 Date of Last Colonoscopy 05/19/2022 Date of Last Mammogram 05/08/2024 Obstetrics History GPAL:G 0 P 0 0 0 0 Immunizations Vaccine Type Date Status Provider Name and Address Organization Details Recorded Time COVID-19, mRNA, LNP-S, PF, emmie-sucrose, 30 mcg/0.3 mL 03/23/20[address] completed MD [address], [place], [address], [facility]. 03/23/2024 10:30:29 Tdap 11/03/2021 completed MD [address], [place], [address], [facility] 06/30/2024 09:32:09 Past Encounters Encounter ID Performer Location Encounter Start Date Encounter Closed Date Diagnosis/Indication Diagnosis SNOMED-CT Code Diagnosis ICD10 Code [id number] SCOTT PRIDE [facility] [address] [facility] [place] [address] 06/26/2024 17:05:01 06/26/2024 18:45:49 Acute cystitis 59187278 N30.01 Health Concerns Section Related Observation LastModified by Organization Detai ls LastModified Time None Recorded Concern Status LastModified by Organization Details LastModified Time None Recorded Payers Encounter Date Sequence Insurance Name Policy Number Policy Louis Covered Member ID Louis Member ID Guarantor Name 06/26/2024 1 [facility] [id number] Suasnnikita Jonessay [id number] Nabeel Brower Notes Date Note Type Note Provider Name and Address Organization Details Recorded Time 06/26/2024 text/html HPI Notes: Patient with occasional UTI symptoms, every few years, with onset this AM upon waking, with dysuria, frequency, urgency, feeling of needing to empty bladder, but only able to void small amounts. No gross hematuria. No flank pain, no measured fevers, no vomiting. Identifies 15 mile bike ride yesterday as likely triggering/inciti ng event. SCOTT PRIDE [address], [place], [address], [facility] [[email or web address] - [facility]. 06/26/2024 18:30:43 OBGyn Episode No OBEpisode recorded.
--- OUTSIDE RECORDS SUMMARY | 2024-07-20 18:35 | XMS_ITS | Encounter Summary ---
Author Organization [facility] Address [address] [place] [address] Care Team Providers Care Block Cableman Name Role Phone Unavailable Primary Care Provider Unavailabl e Encounter Details Date Type Department Care Team (Late st Contact Info) Description 03/23/2024 Lab Requisition [facility] Pathology & Laboratory Medicine - [facility] [address] [place], [place] [address] Outr Resulting Lab, Provider Social History Tobacco [...] 4th Generation Negative Negative 03/24/2024 10:07 EDT [facility] Comment:If acute HIV-1 infec tion is suspected in a high risk patient, submit plasma specimen for HIV-1 RNA quantitation test. Blood VENOUS BLOOD / Unknown 03/23/2024 10:00 EDT 03/23/2024 22:18 EDT Narrative [facility] - 03/24/2024 10:07 EDT Fourth Generation assay performed on the Siemens Centaur XPT. Provider Outr Resulting Lab IMMUNOLOGY A ND SEROLOGY ORDERABLES [facility] [address] [place] [id number] documented in this encounter Visit Diagnoses Not on filedocumented in this encounter
--- OUTSIDE RECORDS SUMMARY | 2024-07-20 18:35 | XMS_ITS | Clinical Summary ---
Author Organization [facility] Address [address] [place] [address] Care Team Providers Care Topper Press Operator Name Role Phone Unavailable Primary Care Provider Unavailabl e Encounters Date Type Department Care Team Description 07/20/2024 Lab Requisition [facility] Pathology & Laboratory Medicine - [facility] [address] [place] [address] Outr Resulting Lab, Provider from Last 3 Months Social History Tobacco Use Types Packs/Day Years Used Date Smoking Tobacco: Never Assessed Sex and Gender Information Value Date Recorded Sex Assigned at Not on file Gender Identity Not on file Sexual Orientation Not on file Plan of Treatment Health Maintenance Due Date Last Done Comments Hepatitis B Vaccine (1 of 3 - 19+ 3-dose series) 04/10 COVID-19 Vaccine ( season) 2023 Hepatitis C Screen Completed 03/23/2024 Procedures Procedure Name Priority Date/Time Associated Diagnosis Comments HEPATITIS C AB W REFLEX TO HCV RNA BY PCR Routine 03/23/2024 10:00 EDT from Last 3 Months or Most Recently Relevant to Health Maintenance Results * HEPATITIS C AB W REFLEX TO HCV RNA BY PCR (03/23/2024 10:00 EDT) Hep C Antibody Negative Negative 03/24/2024 9:54 EDT [facility] Blood VENOUS BLOOD / Unknown 03/23/2024 10:00 EDT 03/23/2024 22:18 EDT Provider Outr Resulting Lab CHEMISTRY & BLOOD GAS ORDERABLES [facility] [address] [place], [place] [address] from Last 3 Months or Most Recently Relevant to Health Maintenance
--- OUTSIDE RECORDS SUMMARY | 2024-07-20 18:35 | XMS_ITS | Encounter Summary ---
Author Organization [facility] [place] [address] Care Team Providers Care Cloth Washer Back Tender Name Role Phone Unavailable Primary Care Provider Unavailabl e Reason for Referral * Consultation (Routine) - Authorized Specialty Diagnoses / Procedures Referred By Contdaya loving Referred To Contact Dermatology Diagnoses Disorder of skin and subcutaneous tissue Skye Nicole MD [address] [place] [address] [facility] [address] [place] [address] Referral ID Status Reason Start Date Expiration Date Visits Requested Visits Authorized [id number] Authorized Consult, Test & Treat PCP Updated and/or Approved 03/31/2024 03/31/2025 6 6 Encounter Details Date Type Department Care Team (Latest Contact Info) Description 03/31/2024 Transcribe Orders eDH Incoming Referrals [phone] Skye Nicole MD [address] [place], [place] [id number] Disorder of skin and subcutaneous tissue Social [...] AM EDT Hospital Encounter [place] [address] [facility] [place] [address] 09/05/2024 7:30 AM EDT - 09/05/2024 10:14 AM EDT Surgery [place] [address] [facility] [place] [address] LAPAROSCOPIC HERNIA REPAIR, INITIAL INGUINAL (WRVU 6.36) 10/06/2024 8:30 AM EST Office [place] [address] [facility] [place] [address] 12/04/2024 3:30 PM EST Office Visit Dermatology at [address] [address] [facility] DR [place] [address] Scheduled Procedures Name Priority Associated Diagnoses Date/Ti [...]
--- OUTSIDE RECORDS SUMMARY | 2024-07-20 18:35 | XMS_ITS | Encounter Summary ---
[place] [address] Care Team Providers Care Insurance Collector Name Role Phone Unavailable Primary Care Provider Unavailabl e Reason for Referral * Consultation (Urgent) - Authorized Specialty Diagnoses / Procedures Referred By Danuta loving Referred To Contact Maxillofacial Surgery Diagnoses Facial injury, subsequent encounter facial trauma, facial laceration, swollen upper palate, jaw pain Juan Toussaint DDS [address] [place] [address] [facility] [address] [place] [phone] Referral ID Status Reason Start Date Expiration Date Visits Requested Visits Authorized [id number] Authorized Consult, Test & Treat PCP Updated and/or Approved 01/03/2024 01/02/2025 1 1 Encounter Details Date Type Department Care Team (Late st Contact Info) Description 01/03/2024 Transcribe Orders eDH Incoming Referrals [phone] Juan Toussaint DDS [address] [place], [place] [address] Facial injury, subsequent encounter (Primary Dx) Social [...] AM EDT Hospital Encounter [place] [address] Ruthy Calvin MD [facility] [place] [address] 09/05/2024 7:30 AM EDT - 09/05/2024 10:14 AM EDT Surgery [place] [address] Ruthy Calvin MD [facility] [place] [address] LAPAROSCOPIC HERNIA REPAIR, INITIAL INGUINAL (WRVU 6.36) 10/06/2024 8:30 AM EST Office [place] [address] Ruthy Calvin MD [facility] [place] [address] 12/04/2024 3:30 PM EST Office Visit Dermatology at [address] [address] Helen Mary MD [facility] [place] [address] Scheduled Procedures Name Priority Associated Diagnoses Date/Ti [...]
--- OUTSIDE RECORDS SUMMARY | 2024-07-20 18:35 | XMS_ITS | Continuity of Care Document ---
Author Organization OR - [facility] Address [address] [place] [address] Assessment Encounter Date Assessment Date Assessment LastModified by Organization Details LastModified Time 07/20/2024 07/20/2024 Nabeel is a 54yo female with PMH anxiety, GERD, and rosacea here for acute swelling of her left ring finger after falling on it at the beginning of May. Patient seen with Curtis Collier MS3 from [facility]. Patient seen and evaluated by me, Dr. Nicole, and I reviewed and edited the note. [email or web address] Not available 07/20/2024 12:02:46 Plan of Treatment Reminders Order Date Submit Date Provider Last Modified By Organization Details Last Modified Time Details Appointments Acute 20 2023 10:30A M Not available Not available Not available Annual Wellness Exam 2024 08:30A M Not available Not available Not available Lab C reactive protein, QN, serum or plasma - 1 tiger, 1 yellow and 1 purple drawn in office-SN 2023 024 [email or web address] [facility] (Registration ), [address] [place] [address] [facility] [place], [address], 07/20/2024 11:42:01 CBC w/ auto diff 2023 024 ROYA [facility] (Registration ), [address] [place] [address] [place], [address], 07/20/2024 15:32:42 lyme disease igg+igm, serum, reflex western blot 2023 024 [email or web address] [facility] (Registration ), [address] [place] [address] [place], [address], 07/20/2024 11:42:01 Referral None recorded. Procedures None recorded. Surgeries None recorded. Imaging XR, hand, 3 or more view 2023 024 [email or web address] [facility] (Radiology), [address] [place] [address] [place], [address], 07/20/2024 12:10:49 Medication Orders cephalexi n 500 mg tablet 2023 024 [email or web address] [facility], [address] [place], [address], 07/20/2024 11:42:01 Patient TargetsNo targets recorded. Patient InstructionsNo instructions recorded. Reason for Referral General Surgeon Referral for Inguinal hernia direct L inguinal hernia Referring Physician: Skye Nicole [facility], Encounter Date: 03/23/2024 Office System Analyst Referral for S kin lesion Referring Physician: Skye Nicole [facility], Encounter Date: 03/23/2024 Problems Name Problem SNOMED Code Status Onset Date Resolution Date Notes Provider Name and Address Organization Details Recorded Time Anemia 622513809 Active 2023 MADIHA ESCOBAR, [facility] 4 12:37:15 Vitamin D deficiency 50562692 Active 2023 LISA ARANGO RN null, [facility] 4 12:37:15 Gastroesoph ageal reflux disease 708099104 Active 2023 MADIHA ESCOBAR, [facility] 4 12:37:15 Insomnia 531430438 Active 2023 MADIHA ESCOBAR, [facility] 4 12:37:15 Inguinal hernia 510502917 Active 2023 ANDERS MCCLELLAN MA null, [facility] 14:57:53 Amenorrhea 72884155 Active [address], [facility] [address] , [facility] 4 09:55:28 Skin lesion 49555173 Active [address], [facility] [address], [facility] 09:56:32 Anxiety 01009778 Active [address], [facility] [address], [facility] 10:30:09 Rosacea 681100847 Active [address], [facility] [address], [facility] 09:27:46 Effusion of joint of left hand 5587453226132 09 Active [address], [facility] [address], [facility] 10:54:31 Problem Notes None recorded. Procedures Surgical History Date Name Laterality Status Provider Name and Address Organization Details Recorded Time 4 IUD Removal completed MD Ruben [address]OS [address], [facility] [address], [facility] 06/30/2024 09:36:00 4 Date of Last Mammogram completed MD Ruben [address], [facility] [address], [facility] 06/30/2024 09:33:49 2 Date of Last Pap Smear completed MD Ruben [address]OS Dr, [facility] [address], [facility] 06/30/2024 09:33:20 Date of Last Colonoscopy completed SKYE NICOLE MD [address], [facility] [address], [facility] 06/30/2024 09:34:12 biopsy of breast completed LISA ARANGO RN [facility], [facility] 12/10/2023 12:26:48 endoscopy completed ANDERS MCCLELLAN MA null, [facility] 03/23/2024 09:19:33 uterine myomectomy completed SKYE NICOLE MD [address], [facility] [address] 03/23/2024 10:29:45 Imaging Results None recorded. Procedure Notes None recorded. Medical Equipment None Reported. Allergies Allergen ID Allergen Name Allergen Category Reaction Reaction Severity Criticality Documentation Date Start Date Code Code System Note Provider Name and Address Organization Details Recorded Time 84079 prednison e medicatio n Not available Not available Not available 12/20/2023 8640 RxNorm Mikaela Carpenter MA [facility], [facility] 11:39:12 Medications Name Sig Start Date Stop [...] mass index (BMI) Body weight Body temperature Oxygen saturation Oxygen saturation in Arterial blood by Pulse oximetry Heart rate Respiratory rate Systolic blood pressure Diastolic blood pressure Provider Name and Address Organization Details Last Updated DateTime 4 165.1 cm 25.5 kg/m2 38467.6 3 g 97 [degF] 97 % 97 % 69 /min 18 /min 118 mm[Hg] 64 mm[Hg] Curtis Collier [facility] 10:33:49 Social History Question Answer Notes LastModified by Organizat ion Details LastModified Time Tobacco Smoking Status Never Smoker MEREDITH Shrestha, [facility] 12/20/2023 11:39:31 Do You Have An Advance Directive? Yes Pretty Sure She Has Them But Will Take Paper Work Today Just In Case She Does Not. Information not available 03/23/2024 Would You Say That, In General, Your Health Is Very Good [email or web address] Information not available 06/29/2024 Women Aged 18-50 - Would You Like To Become In The Next Year? (Female Patients Only) Yes [email or web address] Information not available 06/29/2024 How Often Does Anyone, Including Family, Physically Hurt You? Never [email or web address] Information not available 06/29/2024 How Often Does Anyone, Including Family, Insult Or Talk Down To You? Never [email or web address] Information no t available 06/29/2024 How Often Does Anyone, Including Family, Threaten You With Harm? Never [email or web address] Information not available 06/29/2024 How Often Does Anyone, Including Family, Scream Or Curse At You? Never [email or web address] Information not available 06/29/2024 Within The Past 12 Months, You Worried That Your Food Would Run Out Before You Got Money To Buy More. Never True Information n ot available 06/29/2024 Within The Past 12 Months, The Food You Bought Just Didn't Last And You Didn't Have Money To Get More. Never True [email or web address] Information n ot available 06/29/2024 How Hard Is It For You To Pay For The Very Basics Like Food, Housing, Medical Care, And Heating? Would You Say It Is: Not Hard At All [email or web address] Information not available 06/29/2024 In The Past 12 Months, Has Lack Of Reliable Transportation Kept You From Medical Appointments, Meetings, Work Or From Getting Things Needed For Daily Living? No Information not available 06/29/2024 What Is Your Housing Situation Today? I Have Housing. [email or web address] Information not available 06/29/2024 How Often In The Past Year Have You Used Marijuana (including Smoking, Vaping, Dabbing, Or Edibles)? Never [email or web address] Information not available 06/29/2024 How Often In The Past Year Have You Used Prescription Medications That Were Not Prescribed To You? Never Information n ot available 06/29/2024 How Often In The Past Year Have You Taken Your Own Prescription Medication More Than The Way It Was Prescribed Or For Different Reasons Than Its Intended Purpose? Never Information no t available 06/29/2024 How Often In The Past Year Have You Used Other Drugs (for Example, Heroin, Cocaine, Meth, Salvia, Inhalants)? Never [email or web address] Information not available 06/29/2024 Have You Ever Used IV Drugs? No [email or web address] Information not available 06/29/2024 Do You Have A Medical Power Of Brass Cutter? Yes Information not available 03/23/2024 What Was [...] mL 03/23/2024 completed MD [address], [facility] [address], [facility] 03/23/2024 10:30:29 Tdap 11/03/2021 completed MD [address]en [address], [place], [address], [facility] 06/30/2024 09:32:09 Past Encounters Encounter ID Performer Location Encounter Start Date Encounter Closed Date Diagnosis/Indication Diagnosis SNOMED-CT Code Diagnosis ICD10 Code [id number] SCOTT PRIDE [address],[facility] [address] [place] [address] 06/26/2024 17:05:01 06/26/2024 18:45:49 Acute cystitis 25666353 N30.01 [id number] SKYE NICOLE MD [address] [address] 06/29/2024 14:35:38 06/29/2024 15:15:58 Adult health examination 545149650 Z00.00 Rosacea 112037876 L71.9 Uses IUD (intrauterine device) contraception 659739620 Z97.5 [id number] SKYE NICOLE MD [address] [address] 07/20/2024 10:18:56 07/20/2024 11:18:02 Effusion of joint of left hand 1113182495 84296 M25.442 Health Concerns Section Related Observation LastModified by Organization Detai ls LastModified Time None Recorded Concern Status LastModified by Organization Details LastModified Time None Recorded Payers Encounter Date Sequence Insurance Name Policy Number Policy Louis Covered Member ID Louis Member ID Guarantor Name 07/20/2024 1 [facility]: [facility] [id number] Nabeel Brower [id number] Nabeel Brower Notes Date Note Type Note Provider Name and Address Organization Details Recorded Time 07/20/2024 text/html HPI Notes: Nabeel is a 54yo female with PMH anxiety, GERD, and rosacea here for acute swelling of her left ring finger after falling on it at the beginning of May. She fell on her outstretched left hand in early May and jammed her ring finger. Initially after the fall, it was tender to touch and somewhat swollen. She said that the swelling improved initially, and the pain has gone down. But over the past weekend, it swelled up again and her PIP joint became red. This was not associated with change in activity or re-injury. She said there is a dull pain, but there is no significant pain with palpation or motion. She has normal ROM and normal sensation. She is wearing a ring on this finger, but the ring was unable to be removed due to the swelling. She also noted some weakness in her left thumb, and she wasn't sure if that was related. She injured her thumb about 4 years ago when it was hyperextended. She said there is some tenderness in her MCP joint of the thumb on extension, but she said that this started earlier this summer and has been relatively unchanged. There is no swelling or discoloration of the thumb. Additionally, she had a known tick bite in March in her groin; there was no rash associated with this. She is unsure if her finger joint swelling is related to Lyme. She denies pain in other joints including shoulders, knees, hips, wrists, or elbows. Denies fatigue. SKYE NICOLE MD [address], [place], [address], [facility]. 07/20/2024 12:04:25 OBGyn Episode No OBEpisode recorded.
--- OUTSIDE RECORDS SUMMARY | 2024-07-20 18:35 | XMS_ITS | Encounter Summary ---
Author Organization [facility] [place] [address] Care Team Providers Care Hide Salter Name Role Phone Unavailable Primary Care Provider [...] AM EDT Hospital Encounter [place] [address] Ruthy Calvin MD [facility] [place] [address] 09/05/2024 7:30 AM EDT - 09/05/2024 10:14 AM EDT [place] [address] Ruthy aClvin MD [facility] [place] [address] LAPAROSCOPIC HERNIA REPAIR, INITIAL INGUINAL (WRVU 6.36) 10/06/2024 8:30 AM EST Office Visit [place] [address] Ruthy Calvin MD [facility] [place] [address] 12/04/2024 3:30 PM EST Office Visit Dermatology at [facility] [address] [place] [address] Helen Mary MD [facility] DR SHAIN[place] [address] Scheduled Procedures Name Priority Associated Diagnoses Date/Ti [...]
--- OUTSIDE RECORDS SUMMARY | 2024-07-20 18:35 | XMS_ITS | Encounter Summary ---
Author Organization [facility] Address [facility] [place] [address] Care Team Providers Care It Risk And Assurance Senior Manager Name Role Phone kSye Nicole MD Primary Care Provider [phone] Reason for Visit * Reason Comments Establish Care * Consultation (Routine) - Authorized Specialty Diagnoses / Procedures Referred By Contac t Referred To Contact General Surgery Diagnoses Direct left inguinal hernia Unilateral inguinal hernia without obstruction or gangrene, recurrence not specified ? SURGICAL INTERVENTION NEEDED PLEASE SCHED WITHIN 3-4 WEEKS Skye Nicole MD [address] [place] [address] [facility] [address] [place] [address] Referral ID Status Reason Start Date Expiration Date Visits Requested Visits Authorized [id number] Authorized Consult, Test & Treat PCP Updated and/or Approved 03/31/2024 03/31/2025 6 6 Encounter Details Date Type Department Care Team (Late st Contact Info) Description 04/11/2024 10:30 AM EDT Office [place] [address] Ruthy Calvin MD [facility] [place] [address] Non-recurrent unilateral inguinal hernia without obstruction or [...] Calvin MD - 04/11/2024 10:30 AM EDT [facility] General Surgery History and Physical History of [...] of choice) Weight gain- none BMI- Hemoglobin Y2p-vynq >4 METS-yes Past Medical History: There is [...] not limited to general risks such as [place], stroke, PE, DVT and even , andrisks [...] of Nabeel Brower. Ruthy Calvin MD, FACS therapeutic sales specialist Division of Minimally Invasive Surgery [phone] * Amita Fishman - 04/11/2024 10:30 AM EDTSjumana: Asymptomatic Direct L Inguinal Hernia [facility] General Surgery History and Physical History of Present Illness: Nabeel Brower is a 54 y.o. 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 Skye Nicole in [place], [place] for an asymptomatic direct L inguinal [...] Dr. Ann for this issue at the [facility] who suspected her active lifestyle/biking may have contributed to the hernia. Dr. Ann recommended surgical repair, but [place] to follow [place]. Hernia Risk Factors: [...] summer on her first biking trip in [facility], biking 40 miles/day Alcohol 3-4 nights/week ([place] [...] not limited to general risks such as [place], stroke, PE, DVT and even , andrisks [...] the care of Nabeel Brower. Amita Fishman [facility] MS-4 Minimally Invasive Surgery Service documented in this encounter Plan of Treatment Upcoming Encounters Date Type Department Care Team (Latest Contact Info) Description 09/05/2024 7:30 AM EDT Hospital Encounter [place] [address] Ruthy Calvin MD [facility] [place] [address] 09/05/2024 7:30 AM EDT - 09/05/2024 10:14 AM EDT Surgery [place] [address] Ruthy Calvin MD [facility] [place] [address] LAPAROSCOPIC HERNIA REPAIR, INITIAL INGUINAL (WRVU 6.36) 10/06/2024 8:30 AM EST Office Visit [place] [address] Ruthy Calvin MD [facility] [place] [address] 12/04/2024 3:30 PM EST Office Visit Dermatology at [facility] [address] [place] [address] Helen Mary MD [facility] DR [place] [address] Scheduled Orders Name Type Priority Associated Diagnoses Orde r Schedule SURGICAL CASE REQUEST NO POSTOP PAIN: LAPAROSCOPIC HERNIA REPAIR, INITIAL INGUINAL (WRVU 6.36) Procedures Routine Non-recurrent unilateral inguinal hernia without obstruction or gangrene One Time for 1 Occurrences starting 04/11/2024 until 04/11/2024 Scheduled Procedures Name Priority Associated Diagnoses Date/Ti tn LAPAROSCOPIC HERNIA REPAIR, INITIAL INGUINAL (WRVU 6.36) [...] gangrene documented in this encounter Care Teams It Risk And Assurance Senior Manager Relationship Specialty Start Date End Date Skye Nicole MD [address] [place] [id number] PCP - General Family Medicine 04/11/24 documented as of this encounter
--- OUTSIDE RECORDS SUMMARY | 2024-07-20 18:35 | XMS_ITS | Encounter Summary ---
Author Organization [facility] [place] [address] Care Team Providers Care Car Mover Name Role Phone Skye Nicole MD Primary Care Provider [phone] Encounter Details Date Type Department Care Team [...] AM EDT Hospital Encounter [place] [address] Rutyh Calvni MD [facility] [place] [address] 09/05/2024 7:30 AM EDT - 09/05/2024 10:14 AM EDT Surgery [place] [address] Ruthy Calvin MD [facility] [place] [address] LAPAROSCOPIC HERNIA REPAIR, INITIAL INGUINAL (WRVU 6.36) 10/06/2024 8:30 AM EST Office [place] [address] Ruthy Calvin MD [facility] [place] [address] 12/04/2024 3:30 PM EST Office Visit Dermatology at [facility] [address] [place] [address] Helen Mary MD [facility] [place] [address] Scheduled Procedures Name Priority Associated Diagnoses Date/Ti me LAPAROSCOPIC HERNIA REPAIR, INITIAL INGUINAL (WRVU 6.36) Yes Non-recurrent unilateral inguinal hernia without obstruction or gangrene 09/05/2024 7:30 AM EDT MODIFIER MESH,BARD,3D MAX REG Yes Non-recurrent unilateral inguinal hernia without obstruction or gangrene 09/05/2024 7:30 AM EDT documented as of this encounter Visit Diagnoses Not on filedocumented in this encounter Care Teams Car Mover Relationship Specialty Start Date End Date Skye Nicole MD [address] [place] [address] PCP - General Family Medicine 04/11/24 documented as of this encounter
--- OUTSIDE RECORDS SUMMARY | 2024-07-20 18:35 | XMS_ITS | Encounter Summary ---
Author Organization [facility] [place] [address] Care Team Providers Care Inventory Control Supervisor Name Role Phone Unavailable Primary Care Provider Unavailabl e Encounter Details Date Type Department Care Team (Late st Contact Info) Description 12/25/2023 Ancillary Procedure [place] [phone] Juan Toussaint DDS [address] [place] [address] Social History Tobacco Use Types Packs/Day Years [...] AM EDT Hospital Encounter [place] [address] Ruthy Calvin MD [facility] [place] [address] 09/05/2024 7:30 AM EDT - 09/05/2024 10:14 AM EDT Surgery [place] [address] Ruthy Calvin MD [facility] [place] [address] LAPAROSCOPIC HERNIA REPAIR, INITIAL INGUINAL (WRVU 6.36) 10/06/2024 8:30 AM EST Office Visit General Surgery at [facility] [place] [address] Ruthy Calvin MD [facility] [place] [address] 12/04/2024 3:30 PM EST Office Visit Dermatology at [facility] [address] [place] [address] Helen Mary MD [facility] [place] [address] Scheduled Procedures Name Priority Associated Diagnoses Date/Ti [...] And Spine (12/25/2023 12:00 AM EST) Narrative [facility] - 01/03/2024 3:57 PM EST This exam is auto-finalizing. It's purpose is for storage only. Juan Toussaint DDS IMG FILM LIBRARY ORD ERABLES [place], [place] documented in this encounter Visit Diagnoses Not on filedocumented in this encounter
--- OUTSIDE RECORDS SUMMARY | 2024-07-20 18:35 | XMS_ITS | Data Portability ---
Author Organization ID - [facility], [facility] Address [address] [place] [address] Assessment Encounter Date Assessment Date Assessment LastModified by Organization Details LastModified Time 03/23/2024 03/23/2024 53 yo F with h/o anxiety presents to establish care. Overall doing well. Will catch up on screening labs as listed and mammo. Referral to general surgery for management of inguinal hernia. Referral to derm at her request for skin check. Check FSH to help determine menopausal status. The IUD is likely over 7 years old and should be removed. If FSH is high, will not need to be replaced. [email or web address] Not available 03/23/2024 10:31:45 07/20/2024 07/20/2024 Nabeel is a 54yo female with PMH anxiety, GERD, and rosacea here for acute swelling of her left ring finger after falling on it at the beginning of May. Patient seen with Curtis Collier, MS3 from [facility]. Patient seen and evaluated by me, [...] Not available Not available Not available Lab lipid panel, serum 2023 024 [email or web address] [facility] Laboratory (Registration ), [address] [place] [address] [place], [address], 03/28/2024 15:30:46 FSH (follicle -stimulat ing hormone), serum 2023 024 [facility] (Registration ), [address] [place] [address] [place], [address], 03/24/2024 11:34:09 CBC 2023 024 [facility] (Registration ), [address] [place] [address] [place], [address], 03/23/2024 14:43:49 BMP, serum or plasma - 2 tigers, 1 purple, 1 red drawn in office- SN [address] Laboratory (Registration ), [address] [place] [address] [place], [address], 03/28/2024 15:31:08 hepatitis C virus Ab, serum [address] Laboratory (Registration ), [address] [place] [address] [place], [address], 03/28/2024 15:30:57 HIV 1+2 Ab + HIV1 p24 Ag, quantitat scarlett immunoass ay, serum [address] Laboratory (Registration ), [address] [place] [address] [place], [address], 03/28/2024 15:30:33 urinalysi s, dipstick 2023 024 [email or web address] [facility], [address], [address], [place], [address], 06/26/2024 18:26:17 culture, urine + sensitivi ty 2023 024 [facility] (Registration ), [address] [place] [address] [place], [address], 06/28/2024 09:58:22 C reactive protein, QN, serum or plasma - 1 tiger, 1 yellow and 1 purple drawn in office-SN [address] Laboratory (Registration ), [address] [place] [address] [place], [id number], 07/20/2024 11:42:01 CBC w/ auto diff 2023 024 [facility] (Registration ), [address] [place] [address] [place], [id number], 07/20/2024 15:32:42 lyme disease igg+igm, serum, reflex western blot [address] Laboratory (Registration ), [address] [place] [address] [place], [id number], 07/20/2024 11:42:01 Referral general surgeon referral - direct L inguinal hernia 2023 024 [facility], [address] [place], [address], 04/12/2024 10:22:19 dermatolo gist referral [address] ([facility]), [address] [place] [address] [place], [address], 06/21/2024 12:17:19 Procedures None recorded. Surgeries None recorded. Imaging XR, finger(s) , 2 or more view 2023 024 [facility] (Radiology), [address] [place] [address] [place], [address], 12/20/2023 13:21:18 MAMMO, screening , bilateral - no to screening questions [address] (Radiology), [address] [place] [address] [place], [address], 06/21/2024 09:05:29 XR, hand, 3 or more view 2023 024 ATHENAFAX [facility] (Radiology), [address] [place], [address], 07/20/2024 12:10:49 Medication Orders Macrobid 100 mg capsule 2023 024 [email or web address] [facility], [address] [place] [address], [address], 07/20/2024 10:34:14 Macrobid 100 mg capsule 2023 024 [email or web address] [facility], [address] [place] [address], [address], 07/20/2024 10:34:14 azelaic acid 15 % topical gel 2023 024 ROYA [facility], [address] [place] [address], [address], 06/30/2024 09:28:22 cephalexi n 500 mg tablet 2023 024 [email or web address] [facility], [address] [place] [address], [address], 07/20/2024 11:42:01 Patient TargetsNo targets recorded. Patient Instructions Encounter Date Encounter Id Patient Instructions Last Modified By Organization Details Last Modified Time 06/26/2024 [id number] Urinary Tract Infection (UTI) in Women: Care Instructions [email or web address] Not available 06/26/2024 18:21:43 Reason for Referral General Surgeon Referral for Inguinal hernia direct L inguinal hernia Referring Physician: Skye Nicole, Family Medicine, Encounter Date: 03/23/2024 Slasher Referral for S kin lesion Referring Physician: Skye Nicole Family Medicine, Encounter Date: 03/23/2024 Results Created Date Observation Date Name Description Value Unit Range Abnormal Flag Note LastModifiedBy Organization Detail LastModifiedTime 03/23/20 24 03/23/2024 COMPL ETE BLOOD COUNT NO DIFF WBC 5.34 10_3/ uL 4.4-10 .8 normal Not Available [address] [place], [id number] 03/23/2024 14:43:49 03/23/20 24 03/23/2024 COMPL ETE BLOOD COUNT NO DIFF RBC 4.85 10_6/ uL 3.93-5 .22 normal Not Available [address] [place], [address] 03/23/2024 14:43:49 03/23/20 24 03/23/2024 COMPL ETE BLOOD COUNT NO DIFF HGB 14.4 g/dL 11.2-1 5.7 normal Not Available [address] [place], [address] 03/23/2024 14:43:49 03/23/20 24 03/23/2024 COMPL ETE BLOOD COUNT NO DIFF HCT 43.9 % 36.0-4 6.0 normal Not Available [address] [place], [address] 03/23/2024 14:43:49 03/23/20 24 03/23/2024 COMPL ETE BLOOD COUNT NO DIFF MCV 91 fL 80-95 normal Not Available [address] [place], [address] 03/23/2024 14:43:49 03/23/20 24 03/23/2024 COMPL ETE BLOOD COUNT NO DIFF MCH 29.7 pg 27.0-3 3.0 normal Not Available [address] [place], [address] 03/23/2024 14:43:49 03/23/20 24 03/23/2024 COMPL ETE BLOOD COUNT NO DIFF MCHC 32.8 % 32.0-3 6.0 normal Not Available [address] [place], [address] 03/23/2024 14:43:49 03/23/20 24 03/23/2024 COMPL ETE BLOOD COUNT NO DIFF RDW 12.7 % 11.7-1 4.6 normal Not Available [address] [place], [address] 03/23/2024 14:43:49 03/23/20 24 03/23/2024 COMPL ETE BLOOD COUNT NO DIFF platelet count 222 10_3/ uL 130-40 0 normal Not Available [address] [place], [address] 03/23/2024 14:43:49 03/23/20 24 03/23/2024 COMPL ETE BLOOD COUNT NO DIFF MPV 11.5 fL 8.0-11 .0 high Not Available [address] [place], [address] 03/23/2024 14:43:49 03/23/20 24 03/23/2024 BASIC METAB OLIC PANEL calcium 9.6 mg/dL 8.5-10 .1 normal Not Available [address] [place], [address] 03/23/2024 15:01:57 03/23/20 24 03/23/2024 BASIC METAB OLIC PANEL glucose 100 mg/dL 74-106 normal Not Available Malina betancourt [address] [place] [facility] [place], [address] 03/23/2024 15:01:57 03/23/20 24 03/23/2024 BASIC METAB OLIC PANEL BUN 18 mg/dL 7-18 normal Not Available Malina betancourt [address] [place], [address] 03/23/2024 15:01:57 03/23/20 24 03/23/2024 BASIC METAB OLIC PANEL creatinine 0.9 mg/dL 0.55-1 .02 normal Not Available [address] [place] [facility] [place], [address] 03/23/2024 15:01:57 03/23/20 24 03/23/2024 BASIC METAB OLIC PANEL estimated GFR 77.40 mL/min /1.73m 2 The eGFR is calcu lated from a serum creat inine using the CKD-E PI 2020 equat ion. Other varia bles requi red for the equat ion are gende r and age; this equat ion does not inclu de a race coeff icien t. This equat ion has simil ar overa ll perfo rmanc e to previ ous equat ions excep t value s may diffe r, in parti cular , in patie nts with highe r value s of eGFR and young er-ag ed adult s. Not Available [address] [place], [address] 03/23/2024 15:01:57 03/23/20 24 03/23/2024 BASIC METAB OLIC PANEL sodium 142 mmol/ L 136-14 5 normal Not Available [address] [place], [address] 03/23/2024 15:01:57 03/23/20 24 03/23/2024 BASIC METAB OLIC PANEL potassium 4.5 mmol/ L 3.5-5. 1 normal Not Available [address] [place], [address] 03/23/2024 15:01:57 03/23/20 24 03/23/2024 BASIC METAB OLIC PANEL chloride 105 mmol/ L 98-107 normal Not Available [address] [place], [address] 03/23/2024 15:01:57 03/23/20 24 03/23/2024 BASIC METAB OLIC PANEL CO2 29.9 mmol/ L 21.0-3 2.0 normal Not Available [address] [place], [address] 03/23/2024 15:01:57 03/23/20 24 03/23/2024 BASIC METAB OLIC PANEL anion gap 7.1 mmol/ L 3-11 normal Not Available [address] [place], [address] 03/23/2024 15:01:57 03/23/20 24 03/23/2024 LIPID 2 cholesterol 191 mg/dL <200 Not Available [address] [place], [address] 03/23/2024 15:01:57 03/23/20 24 03/23/2024 LIPID 2 triglyceride 82 mg/dL <150 Not Available [address] [place], [address] 03/23/2024 15:01:57 03/23/20 24 03/23/2024 LIPID 2 HDL cholesterol 65 mg/dL 40-60 Not Available [facility] [address] [place], [address] 03/23/2024 15:01:57 03/23/20 24 03/23/2024 LIPID 2 calculated LDL 110 mg/dL <100 high Natio nal Helena stero l Educa tion Progr am (NCEP -ATPI II) class ifica tions : Helena stero l <200 mg/dL Chio able Helena stero l 200-2 39 mg/dL Borde rline High Helena stero l >or=2 40 mg/dL High HDL <40 mg/dL Low HDL >or=6 0 mg/dL High LDL <100 mg/dL Optim al LDL 100-1 29 mg/dL Near Optim al/Ab ove Optim al LDL 130-1 59 mg/dL Borde rline High LDL 160-1 89 mg/dL High LDL >or=1 90 mg/dL Very High *The above refer ence range is for adult s 18 years or older . Not Available [address] [place], [address] 03/23/2024 15:01:57 03/23/20 24 03/24/2024 HEPAT ITIS C AB W RFLX HCV PCR hepatitis C Ab W rflx HCV PCR Negati ve negati ve Test perfo rmed or refer red by [facility] [address] [place] [place] [address] Not Available [address] [place], [address] 03/24/2024 11:34:08 03/23/2003/24/2024 FSH FSH 83.1 mIU/m L see note NOTE: Femal e FSH Refer ence Range s (Mens truat ing): PHYSI OLOGI GRISEL STATU S REFER ENCE RANGE ----- ----- ----- ----- ----- ----- ----- Folli cular (-12 to -4 days) : 2.5 - 10.2 mIU/m L Midcy daija (-3 to +2 days) : 3.4 - 33.4 mIU/m L Lutea l (+4 to +12 days) : 1.5 - 9.1 mIU/m L Postm enopa usal: 23.0 - 116.3 mIU/m L Refer ence Range s for pedia tric non-m enstr uatin g femal e patie nts have not been estab lishe d. Test perfo rmed or refer red by [facility] [address], [place] [address] Not Available [address] [place], [address] 03/24/2024 11:34:11 03/23/20 24 03/24/2024 HEPAT ITIS C AB W RFLX HCV PCR hepatitis C Ab W rflx HCV PCR Negati ve negati ve Test perfo rmed or refer red by [facility] [address], [place] [address] Not Available [address] [place], [address] 03/24/2024 11:34:11 03/23/20 24 03/24/2024 HIV-1 /2 AG AB SCREE N HIV-1/2 Ag Ab screen Negati ve negati ve If acute HIV-1 infec tion is suspe cted in a high risk patie nt, submi t plasm a speci men for HIV-1 RNA quant itati on test. Fourt h Gener ation assay perfo rmed on the [facility] X[facility]. Test perfo rmed or refer red by [facility] [address], [place] [address] Not Available [address] [place], [address] 03/24/2024 11:34:14 06/26/20 24 06/28/2024 URINE CULTU RE urine culture Urine Cultu re Proba ble conta minat ed colle ction APPEA LANA Mixed Gram Posit scarltet Nanci APPEA LANA Mixed Gram Negat scarlett Nanci COLON Y COUNT Not Available [facility] Laboratory (Registration ) [address] [place] [address] [place], [address], 06/28/2024 09:48:15 06/26/20 24 06/28/2024 URINE CULTU RE urine culture colon ies/m L 10,00 0 - 50,00 0 COLON Y COUNT 10,00 0 - 50,00 0 Day 1 Resul t ISOLA EDSON BELOW O:GPF M (ORGA NISM ID: 1.1) - GRAM POSIT SCARLETT NANCI ,MIXE D Urine Cultu re (ORGA NISM ID: 1.1) - COLON Y COUNT (ORGA NISM ID: 1.1) - 10,00 0 - 50,00 0 O:GNF M (ORGA NISM ID: 1.2) - GRAM NEGAT SCARLETT NANCI ,MIXE D Urine Cultu re (ORGA NISM ID: 1.2) - COLON Y COUNT (ORGA NISM ID: 1.2) - 10,00 0 - 50,00 0 Not Available [facility] (Registration ) [address] [place] [address] [place], [address], 06/28/2024 09:48:15 06/26/20 24 06/29/2024 URINE CULTU RE urine culture Urine Cultu re Proba ble conta minat ed colle ction APPEA LANA Mixed Gram Posit scarlett Nanci APPEA LANA Mixed Gram Negat scarlett Nanci APPEA LANA Mixed Gram Posit scarlett Nanci APPEA LANA Mixed Gram Negat scarlett Nanci COLON Y COUNT Not Available [facility] (Registration ) [address] [place] [address] [place], [address], 06/29/2024 08:41:50 06/26/20 24 06/29/2024 URINE CULTU RE urine culture colon ies/m L 10,00 0 - 50,00 0 COLON Y COUNT 10,00 0 - 50,00 0 COLON Y COUNT 10,00 0 - 50,00 0 COLON Y COUNT 10,00 0 - 50,00 0 Day 1 Resul t ISOLA EDSON BELOW Day 2 Resul t ISOLA EDSON BELOW O:GPF M (ORGA NISM ID: 1.1) - GRAM POSIT SCARLETT NANCI ,MIXE D Urine Cultu re (ORGA NISM ID: 1.1) - COLON Y COUNT (ORGA NISM ID: 1.1) - 10,00 0 - 50,00 0 O:GNF M (ORGA NISM ID: 1.2) - GRAM NEGAT SCARLETT NANCI ,MIXE D Urine Cultu re (ORGA NISM ID: 1.2) - COLON Y COUNT (ORGA NISM ID: 1.2) - 10,00 0 - 50,00 0 Not Available [facility] (Registration ) [address], [place], [address], 06/29/2024 08:41:50 06/26/20 24 06/26/2024 urina lysis , dipst ick Leukocytes Small Not Available [address] [address], [place], [address], 06/26/2024 18:15:52 06/26/20 24 06/26/2024 urina lysis , dipst ick Nitrite negati ve Not Available [address] [address], [place], [address], 06/26/2024 18:15:52 06/26/20 24 06/26/2024 urina lysis , dipst ick Urobilinogen .2 Not Available [address] [address], [place], [address], 06/26/2024 18:15:52 06/26/20 24 06/26/2024 urina lysis , dipst ick Protein 30 Not Available [address] [address], [place], [address], 06/26/2024 18:15:52 06/26/20 24 06/26/2024 urina lysis , dipst ick pH 6.5 Not Available [address] [address], [place], [address], 06/26/2024 18:15:52 06/26/20 24 06/26/2024 urina lysis , dipst ick Blood Large Not Available [address], [place], [address], 06/26/2024 18:15:52 06/26/20 24 06/26/2024 urina lysis , dipst ick Specific [place] 1.015 Not Available [address], [place], [address], 06/26/2024 18:15:52 06/26/20 24 06/26/2024 urina lysis , dipst ick Ketone Negati ve Not Available [address], [place], [address], 06/26/2024 18:15:52 06/26/20 24 06/26/2024 urina lysis , dipst ick Bilirubin Negati ve Not Available [address], [place], [address], 06/26/2024 18:15:52 06/26/20 24 06/26/2024 urina lysis , dipst ick Glucose Negati ve Not Available [address], [place], [address], 06/26/2024 18:15:52 06/26/20 24 06/26/2024 urina lysis , dipst ick Appearance Clear Not Available [address], [place], [address], 06/26/2024 18:15:52 06/26/20 24 06/26/2024 urina lysis , dipst ick Color Pale Yellow Not Available [address], [place], [address], 06/26/2024 18:15:52 12/20/19 24 12/20/2023 XR, finge r(s), 2 or more view Patien t Name: Elías De Leon Unit #: [id number] Loc: DI Orderi ng Provid er: PRIYA CASSIDY Accoun t #: [id number] Status : REG CLI Primar y Care Provid er: Unknow n,Unkn own Date of Exam: 04/07 Sex: F Admiss ion Date: : 1969 Age: 53 Exam(s ) XR FINGER RT INDEX EXAM: XR FINGER RT INDEX CLINIC AL HISTOR Y: M79.64 4 Pain in right finger s,inde x. TECHNI QUE: 2D digita l imagin g was perfor med. COMPAR HARRY: No exams were availa ble for compar harry FINDIN GS: 3 views No eviden ce of acute fractu re or disloc ation. No radiop aque foreig n body. No osseou s lesion s nor erosio ns. IMPRES CHI: No signif icant osseou s findin gs in the 2nd-in dex finger . DATA REPOSI TORY: RADIAT ION DOSE DELIVE RED: Ordere d By: PRIYA CASSIDY CC: ------ ------ ------ ------ ------ ------ ------ ------ ------ ------ ------ ------ - Dictat ed By: Mark Lyn M.D. 1303 1303 Transc ribed By: Riki ABARCA,Garima mccracken 1303 This is privil eged, confid ential inform ation intend ed only for the provid er named. Any use or distri bution by any person other than this provid er is strict ly prohib ited. If you receiv e this report in error, please notify us immedi ately at and return the origin al report to us at the addres s above. Thank- you. [email or web address] [facility] (Radiology) [address] [place] [address] [place], [address], 12/20/2023 13:41:11 05/08/20 24 05/08/2024 MAMMO , scree dwayne, bilat eral Patidaniela t Name: Elías De Leon Unit #: [id number] Loc: DI Orderi ng Provid er: Skye Nicole Accfrancisco javier t #: [id number] Status : REG CLI Primar y Care Provid er: Unknow n,Unkn own Date of Exam: Sex: F Admiss ion Date: : 1969 Age: 54 Exam(s ) MG MAMMO SCREEN ING EXAM: MG MAMMO SCREEN ING CLINIC AL HISTOR Y: SCREEN ING, Z12.31 TECHNI QUE: Bilate ral full field digita l CC and MLO mammog raphic images were obtain ed with 3D tomosy nthesi s and utiliz ing comput er aided detect ion (CAD). COMPAR HARRY: Availa ble for compar harry. FINDIN GS: Masses /Archi tectur al Distor tion: There is again seen a nodule in the right breast with a biopsy clip in the retroa reolar region . This is stable . No new nodule s. No areas of magen ectura l distor tion. Microc alcifi cation s: No suspic ious pleomo rphic- type are seen. Skin Thicke dwayne/N ipple Retrac tion: None. IMPRES CHI: 1. No signif icant interv al change with no specif ic featur es of malign rojelio noted. 2. Unless there is more urgent need, screen ing mammog pablo is recomm ended, as per [facility] guidel юлия. BI-RAD S Catego ry 2 - Benign Findin gs Breast Densit y - Catego ry C - Hetero geneou sly dense Breast densit y catego ry C or D implie s that the patien t has dense breast tissue . Dense breast tissue is very common and is not abnorm al but dense breast tissue can make it harder to find cancer on a mammog latanya. Also, dense breast tissue may increa se their breast cancer risk. This inform ation about the result of the mammog latanya report was provid ed to the patien t to raise their awaren ess. Use this report when you speak with the patien t about their risks for breast cancer , which includ es their family histor y. At that time, you may recomm end for more screen ing tests (Ultra sound or MRI) as they might be useful based on their risk. A negati ve radiog raphic report should not delay biopsy if a domina nt or clinic ally suspic ious mass is presen t. Up to ten percen t of cancer s are not identi fied on mammog pablo. A negati ve report may reinfo rce clinic al impres chi. Adenos is and dense breast s may obscur e an underl don neopla sm. False positi ve report s averag e 6 to 10%. Patien t will receiv e a letter notify ing them of these result s. Ordere d By: Skye Nicole CC: ------ ------ ------ ------ ------ ------ ------ ------ ------ ------ ------ ------ - Dictat ed By: Ezequiel Carpenter M.D. 1654 Transc ribed By: Ezequiel Carpenter 1654 This is privil eged, confid ential inform ation intend ed only for the provid er named. Any use or distri bution by any person other than this provid er is strict ly prohib ited. If you receiv e this report in error, please notify us immedi oksanaly at and return the origin al report to us at the addres s above. Thank- you. [facility] [address] [place], [address] 06/21/2024 09:05:29 07/01/20 24 12/20/2023 x-ray imagi ng repor t Patien t Name: Elías De Leon Unit #: [id number] Loc: DI Orderi ng Provid er: PRIYA CASSIDY Atiya Okeefe t #: [id number] Status : REG CLI Primar y Care Provid er: Date of Exam: Sex: F Admiss ion Date: : 1969 Age: 53 Addend a: Exam(s ) XR FINGER RT INDEX ADDEND UM: The images were review ed. I agree with the findin gs and impres chi below. Dictat ed By: Finesse Louis [id number] Finesse Louis 1541 Transc ribed By: Analisa Hughes [id number] Exam(s ) XR FINGER RT INDEX EXAM: XR FINGER RT INDEX CLINIC AL HISTOR Y: M79.64 4 Pain in right finger s,inde x. TECHNI QUE: 2D digita l imagin g was perfor med. COMPAR HARRY: No exams were availa ble for compar harry FINDIN GS: 3 views No eviden ce of acute fractu re or disloc ation. No radiop aque foreig n body. No osseou s lesion s nor erosio ns. IMPRES CHI: No signif icant osseou s findin gs in the 2nd-in dex finger . DATA REPOSI TORY: RADIAT ION DOSE DELIVE RED: Ordere d By: PRIYA CASSIDY CC: ------ ------ ------ ------ ------ ------ ------ ------ ------ ------ ------ ------ - Dictat ed By: Mark Lyn M.D. 1303 1303 Transc ribed By: Garima Lyn MD 1303 This is privil eged, confid ential inform ation intend ed only for the provid er named. Any use or distri bution by any person other than this provid er is strict ly prohib ited. If you receiv e this report in error, please notify us immedi ately at and return the origin al report to us at the addres s above. Thank- you. [email or web address] [facility] [address] , [place], [address] 05/15/2024 16:38:03 Result Notes Documentation Provider Name and Address Organization Details Recorded Time Xr, Finger(s), 2 Or More View : Patient Name: Nabeel Brower Unit #: [id number] Loc: DI Ordering Provider: OLESYA CASSIDY Status: REG CLI Primary Care Provider: Unknown,Unknown Date of Exam: 04/07 Sex: F Admission Date: 12/20/23 : 1970 Age: 53 Exam(s) XR FINGER RT INDEX EXAM: XR FINGER RT INDEX CLINICAL HISTORY: M79.644 Pain in right fingers,index. TECHNIQUE: 2D digital imaging was performed. COMPARISON: No exams were available for comparison FINDINGS: 3 views No evidence of acute fracture or dislocation. No radiopaque foreign body. No osseous lesions nor erosions. IMPRESSION: No significant osseous findings in the 2nd-index finger. DATA REPOSITORY: RADIATION DOSE DELIVERED: Ordered By: OLESYA CASSIDY CC: Dictated By: Mark Lyn M.D. 12/20/23 1303 12/20/23 1303 Transcribed By: Mark Lyn MD 12/20/23 1303 This is privileged, confidential information intended only for the provider named. Any use or distribution by any person other than this provider is strictly prohibited. If you receive this report in error, please notify us immediately at [phone] and return the original report to us at the address above. Thank-you. OLESYA CASSIDY, [address], [place], [address], [facility] 12/20/2023 13:41:11 Mammo, Screening, Bilateral : Patient Name: Nabeel Brower Unit #: [id number] Loc: Ordering Provider: Skye Nicole Status: REG [facility] Primary Care Provider: Unknown,Unknown Date of Exam: Sex: F Admission Date: 05/08/24 : 1970 Age: 54 Exam(s) MG MAMMO SCREENING EXAM: MG MAMMO SCREENING CLINICAL HISTORY: SCREENING, Z12.31 TECHNIQUE: Bilateral full field digital CC and MLO mammographic images were obtained with 3D tomosynthesis and utilizing computer aided detection (CAD). COMPARISON: Available for comparison. FINDINGS: Masses/Architectural Distortion: There is again seen a nodule in the right breast with a biopsy clip in the retroareolar region. This is stable. No new nodules. No areas of architectural distortion. Microcalcifications: No suspicious pleomorphic-type are seen. Skin Thickening/Nipple Retraction: None. IMPRESSION: 1. No significant interval change with no specific features of malignancy noted. 2. Unless there is more urgent need, screening mammography is recommended, as per [place] [employer] guidelines. BI-RADS Category 2 - Benign Findings Breast Density - Category C - Heterogeneously dense Breast density category C or D implies that the patient has dense breast tissue. Dense breast tissue is very common and is not abnormal but dense breast tissue can make it harder to find cancer on a mammogram. Also, dense breast tissue may increase their breast cancer risk. This information about the result of the mammogram report was provided to the patient to raise their awareness. Use this report when you speak with the patient about their risks for breast cancer, which includes their family history. At that time, you may recommend for more screening tests (Ultrasound or MRI) as they might be useful based on their risk. A negative radiographic report should not delay biopsy if a dominant or clinically suspicious mass is present. Up to ten percent of cancers are not identified on mammography. A negative report may reinforce clinical impression. Adenosis and dense breasts may obscure an underlying neoplasm. False positive reports average 6 to 10%. Patient will receive a letter notifying them of these results. Ordered By: Skye Nicole CC: Dictated By: Ezequiel Carpenter M.D. 05/08/24165405/08/241654 Transcribed By: Ezequiel Carpenter 05/08/241654 This is privileged, confidential information intended only for the provider named. Any use or distribution by any person other than this provider is strictly prohibited. If you receive this report in error, please notify us immediately at [phone] and return the original report to us at the address above. Thank-you. Sarah Hayward null, [facility] 06/21/2024 09:05:29 Problems Name Problem SNOMED Code Status Onset Date Resolution Date Notes Provider Name and Address Organization Details Recorded Time Anemia 045968603 Active 2023 LISA ARANGO RN null, [facility] 12:37:15 Vitamin D deficiency 47127444 Active 2023 LISA ARANGO RN null, [facility] 4 12:37:15 Gastroesoph ageal reflux disease 961635086 Active 2023 LISA ARANGO RN null, [facility] 12:37:15 Insomnia 617268630 Active 2023 LISA ARANGO RN null, [facility] 12:37:15 Inguinal hernia 074099293 Active 2023 ANDERS MCCLELLAN MA null, [facility] 14:57:53 Amenorrhea 70582577 Active [address], [place], [address] [place] [address] 09:55:28 Skin lesion 39334151 Active [address], [facility] [address], [facility] 4 09:56:32 Anxiety 76569148 Active [address], [facility] [address], [facility] 4 10:30:09 Rosaaracelis 467060683 Active [address], [facility] [address], [facility] 4 09:27:46 Effusion of joint of left hand 8114861892653 09 Active [address], [facility] [address], [facility] 4 10:54:31 Problem Notes None recorded. Procedures Surgical History Date Name Laterality Status Provider Name and Address Organization Details Recorded Time 4 IUD Removal completed MD Ruben [address], [facility] [address], [facility] 06/30/2024 09:36:00 4 Date of Last Mammogram completed MD [address]en [address], [facility] [address], [facility] 06/30/2024 09:33:49 2 Date of Last Pap Smear completed MD Ruben [address], [facility] [address] [place] [address] 06/30/2024 09:33:20 2 Date of Last Colonoscopy completed MD Ruben [address], [facility] [address] [place] [address] 06/30/2024 09:34:12 biopsy of breast completed LISA ARANGO RN [facility], [facility] 12/10/2023 12:26:48 endoscopy completed ANDERS MCCLELLAN MA [facility], [facility] 03/23/2024 09:19:33 uterine myomectomy completed MD [address]en [address], [place], [address], [facility] 03/23/2024 10:29:45 Imaging Results Imaging Date Name Status LastModified by Organiz ation Details LastModified Time 12/20/2023 XR, finger(s), 2 or more view completed [email or web address] [facility] (Radiology) [address] [place] [address] [place], [address], 12/20/2023 13:41:11 05/08/2024 MAMMO, screening, bilateral completed [email or web address] [address] [place], [address] 06/21/2024 09:05:29 12/20/2023 x-ray imaging report completed [email or web address] [address] [place] [facility] [place], [address] 05/15/2024 16:38:03 Procedure Notes None recorded. Medical Equipment None Reported. Allergies Allergen ID Allergen Name Allergen Category Reaction Reaction Severity Criticality Documentation Date Start Date Code Code System Note Provider Name and Address Organization Details Recorded Time 95952 prednison e medicatio n Not available Not available Not available 12/20/2023 8640 RxNorm Olesya Carpenter MA [facility], [facility] 11:39:12 Medications Name Sig Start Date Stop [...] Details Last Updated DateTime 4 165.1 cm 23.5 kg/m2 09050.5 2 g 97.8 [degF] 98 % 98 % 64 /min 18 /min 118 mm[Hg] 66 mm[Hg] ANDERS MCCLELLAN MA [facility] 4 09:24:22 Date Recorded Body height Body mass index (BMI) Body weight Body temperature Respiratory rate Oxygen saturation Oxygen saturation in Arterial blood by Pulse oximetry Heart rate Systolic blood pressure Diastolic blood pressure Provider Name and Address Organization Details Last Updated DateTime 4 165.1 cm 25 kg/m2 96300.8 6 g 98.7 [degF] 18 /min 97 % 97 % 66 /min 110 mm[Hg] 69 mm[Hg] BEAR BARTH MA [facility], [facility]. 4 18:02:11 Date Recorded Body height Body mass index (BMI) Body weight Body temperature Oxygen saturation Oxygen saturation in Arterial blood by Pulse oximetry Heart rate Respiratory rate Systolic blood pressure Diastolic blood pressure Provider Name and Address Organization Details Last Updated DateTime 4 165.1 cm 25 kg/m2 89473.8 6 g 97.8 [degF] 97 % 97 % 69 /min 18 /min 109 mm[Hg] 67 mm[Hg] BEAR BARTH MA [facility], [facility] 4 14:43:13 Date Recorded Body height Body mass index (BMI) Body weight Body temperature Oxygen saturation Oxygen saturation in Arterial blood by Pulse oximetry Heart rate Respiratory rate Systolic blood pressure Diastolic blood pressure Provider Name and Address Organization Details Last Updated DateTime 4 165.1 cm 25.5 kg/m2 79463.6 3 g 97 [degF] 97 % 97 % 69 /min 18 /min 118 mm[Hg] 64 mm[Hg] Curtis Collier [facility], [facility] 10:33:49 Social History Question Answer Notes LastModified by Organizat ion Details LastModified Time Tobacco Smoking Status Never Smoker MEREDITH Shrestha, [facility] 12/20/2023 11:39:31 Do You Have An Advance Directive? Yes Pretty Sure She Has Them But Will Take Paper Work Today Just In Case She Does Not. cooper Information not available 03/23/2024 Would You Say That, In General, Your Health Is Very Good [email or web address] Information not available 06/29/2024 Women Aged 18-50 - Would You Like To Become In The Next Year? (Female Patients Only) Yes [email or web address] Information not available 06/29/2024 How Often Does Anyone, Including Family, Physically Hurt You? Never [email or web address] Information not available 06/29/2024 How Often Does Anyone, Including Family, Insult Or Talk Down To You? Never Information no t available 06/29/2024 How Often Does Anyone, Including Family, Threaten You With Harm? Never Information not available 06/29/2024 How Often Does Anyone, Including Family, Scream Or Curse At You? Never [email or web address] Information not available 06/29/2024 Within The Past 12 Months, You Worried That Your Food Would Run Out Before You Got Money To Buy More. Never True [email or web address] Information n ot available 06/29/2024 Within The Past 12 Months, The Food You Bought Just Didn't Last And You Didn't Have Money To Get More. Never True [email or web address] Information n ot available 06/29/2024 How Hard Is It For You To Pay For The Very Basics Like Food, Housing, Medical Care, And Heating? Would You Say It Is: Not Hard At All Information not available 06/29/2024 In The Past 12 Months, Has Lack Of Reliable Transportation Kept You From Medical Appointments, Meetings, Work Or From Getting Things Needed For Daily Living? No [email or web address] Information not available 06/29/2024 What Is Your Housing Situation Today? I Have Housing. [email or web address] Information not available 06/29/2024 How Often In The Past Year Have You Used Marijuana (including Smoking, Vaping, Dabbing, Or Edibles)? Never [email or web address] Information not available 06/29/2024 How Often In The Past Year Have You Used Prescription Medications That Were Not Prescribed To You? Never [email or web address] Information n ot available 06/29/2024 How Often In The Past Year Have You Taken Your Own Prescription Medication More Than The Way It Was Prescribed Or For Different Reasons Than Its Intended Purpose? Never [email or web address] Information no t available 06/29/2024 How Often In The Past Year Have You Used Other Drugs (for Example, Heroin, Cocaine, Meth, Salvia, Inhalants)? Never [email or web address] Information not available 06/29/2024 Have You Ever Used IV Drugs? No [email or web address] Information not available 06/29/2024 Do You Have A Medical Power Of Haulpak Driver? Yes Information not available 03/23/2024 What Was [...] emmie-sucrose, 30 mcg/0.3 mL 03/23/[address], [place], [address], [facility] 03/23/2024 10:30:29 Tdap 11/03/2021 completed MD [address], [place], [address], [facility] 06/30/2024 09:32:09 Past Encounters Encounter ID Performer Location Encounter Start Date Encounter Closed Date Diagnosis/Indication Diagnosis SNOMED-CT Code Diagnosis ICD10 Code [id number] SCOTT PRIDE [address] [place] [address] 12/20/2023 11:21:40 12/20/2023 12:25:59 Pain in finger of right hand 9080414950 01561 M79.644 Contusion of face 704388 004 S00.83XA [id number] SKYE NICOLE MD [address] [address] 03/23/2024 09:05:26 03/23/2024 10:14:43 Inguinal hernia 193801949 K40.90 Amenorrhea 01802367 N91. 2 Skin lesion 12988759 L98 .9 Screening mammography 24 277695 Z12.31 Anemia 003987541 D64.9 HIV screening 453124626 Z11.4 Hyperlipid emia screening 244342774 Z13.220 Hepatitis C screening 41 3686966 Z11.59 Active or passive immunization 181205317 Z23 Anxiety 26139039 F41.9 [id number] SCOTT PRIDE [address] [place] [address] 06/26/2024 17:05:01 06/26/2024 18:45:49 Acute cystitis 33060725 N30.01 [id number] SKYE NICOLE MD [address] [address] 06/29/2024 14:35:38 06/29/2024 15:15:58 Adult health examination 364082563 Z00.00 Abbey 939867824 L71.9 Uses IUD (intrauterine device) contraception 708991199 Z97.5 [id number] SKYE NICOLE MD [address] [address] 07/20/2024 10:18:56 07/20/2024 11:18:02 Effusion of joint of left hand 9772865859 28680 M25.442 Health Concerns Section Related Observation LastModified by Organization Detai ls LastModified Time None Recorded Concern Status LastModified by Organization Details LastModified Time None Recorded Advance Directives Directive Y: Pretty sure she has them but will take paper work today just in case she does not. Payers Encounter Date Sequence Insurance Name Policy Number Policy Louis Covered Member ID Louis Member ID Guarantor Name 12/20/2023 1 [place] [facility] [id number] Seton Leonarda [id number] [facility] 03/23/2024 1 [place] [facility] [id number] Seton Leonarda [id number] Setnikita Jonessay 06/26/2024 1 [place] [facility] [id number] Seton Leonarda [id number] Setnikita Jonessay 06/29/2024 1 [place] [facility] [id number] Seton Leonarda [id number] [facility] 07/20/2024 1 [place] [facility] [id number] Seton Leonarda [id number] Seton Leonarda Notes Date Note Type Note Provider Name and Address Organization Details Recorded Time 12/20/2023 text/html HPI Notes: Patie nt with fall yesterday at [facility]. Was wearing helmet, fell forward onto L cheek/jaw, reaching out with R hand to catch herself. Has 2 small abrasions to face and to L lower lip, with bleeding at time of injury. No LOC at time of injury, no seizure activity, no vomiting. Was evaluated by blockers skiver, with normal pupillary and EOM findings. Since this incident, has noted some mild headache, nausea, fatigue, sleep disturbance, and taking longer to think. She has swelling and tenderness to L cheek, jaw, and lower lip. Reports pain to R index finger with swelling and bruising. Denies pain to wrist or thumb. Used ice to L side of face last night, and taking OTC ibuprofen regular for pain and swelling. Patient denies the use of any regular blood thinners or ASA. [address], [place], [address], [facility]. 12/20/2023 13:19:27 03/23/2024 text/html HPI Notes: Prese nts to establish care. [place] up on [place] and recently moved back. Had been in [place] for 30 years. Has two kids, one at the [employer] and one at [employer] school. 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 Big fall skiing this winter, facial trauma. Concussion, now recovered. Facial fracture, now recovered. Hurt two teeth, thinks the second may need to be pulled. Anxiety - on trazodone 50mg, escitalopram 10mg. Working well for her. Increased anxiety likely due to menopause. IUD - not known when placed. Mirena. Wondering if in menopause. Has had amenorrhea since IUD was placed. There is a note from 11/2022 saying it was probably placed 7 years ago. No records of the actual placement. Derm - has had a lot of benign moles. Would like to see a goldsmith apprentice for skin checks. Mother with transitional cell carcinoma - possibly a skin cancer at the start? Left inguinal hernia - large, would like it it taken care of sometime. Was told it was due to biking? Has had a US that confirms direct inguinal hernia. HCM - due for mammo, covid booster. UTD on colo. Last pap 09/05 per patient. No records available regarding this. MD [address], [place], [address], [facility]. 03/23/2024 10:32:17 06/26/2024 text/html HPI Notes: Patie nt with occasional UTI symptoms, every few years, with onset this AM upon waking, with dysuria, frequency, urgency, feeling of needing to empty bladder, but only able to void small amounts. No gross hematuria. No flank pain, no measured fevers, no vomiting. Identifies 15 mile bike ride yesterday as likely triggering/inciting event. OLESYA CASSIDY, SCOTT [address], [place], [address], [facility]. 06/26/2024 18:30:43 06/29/2024 text/html HPI Notes: Here for annual exam. Overall doing well. Remains active. Recent UTI, improving on nitrofurantoin Rosacea - requests refill on azelaic acid that derm usually prescribes. Anxiety - on trazodone 50mg, escitalopram 10mg. IUD - placed over 7 years ago most likely. Recent FSH elevated into menopausal range. She would like the IUD removed. Left inguinal hernia - large, saw surgery. Will be scheduling surgical repair. HCM - UTD mammo, covid booster. UTD on colo. 05/19/22 - 3mm polyp (hyperplastic) Last pap 09/02/22 NILM, HPV neg. Last tetanus 11/03/21. [facility] SKYE NICOLE MD [address], [place], [address], [facility]. 06/30/2024 09:39:38 07/20/2024 text/html HPI Notes: Nabeel is a [...] fatigue. SKYE NICOLE MD [address], [place], [address], [facility]. 07/20/2024 12:04:25 OBGyn Episode No OBEpisode recorded.
--- OUTSIDE RECORDS SUMMARY | 2024-07-20 18:35 | XMS_ITS | Clinical Summary ---
Author Organization Formerly [facility] [place] [address] Care Team Providers Care Ir[facility] Compliance Coordinator Name Role Phone Skye Nicole MD Primary Care Provider [phone] Allergies Active Allergy Reactions Criticality Noted Date [...] PM EDT Office [place] [phone] Ruthy Calvin MD Non-recurrent unilateral inguinal hernia without obstruction or gangrene 06/25/2024 Travel from Last 3 Months Social History Tobacco [...] AM EDT Hospital Encounter [place] [address] Ruthy Calvin MD [facility] [place] [address] 09/05/2024 7:30 AM EDT - 09/05/2024 10:14 AM EDT Surgery [place] [address] Ruthy Calvin MD [facility] [place] [address] LAPAROSCOPIC HERNIA REPAIR, INITIAL INGUINAL (WRVU 6.36) 10/06/2024 8:30 AM EST Office [place] [address] Ruthy Calvin MD [facility] [place] [address] 12/04/2024 3:30 PM EST Office Visit Dermatology at [address] [phone] Helen Mary MD [facility] [place] [address] Scheduled Procedures Name Priority Associated Diagnoses Date/Ti [...] 2) 2022 Covid-19 Vaccine (1 - season) 2024 Influenza (Flu) vaccine (1 o f 1 - Influenza standard series) 07/16/2024 Care Teams Irb Compliance Coordinator Relationship Specialty Start Date End Date Skye Nicole MD [address] [place] [address] PCP - General Family Medicine 04/11/24
--- OUTSIDE RECORDS SUMMARY | 2024-07-20 18:35 | XMS_ITS | Continuity of Care Document ---
Author Organization [facility] Address [address] [place] [address] Assessment No assessment recorded. Plan of Treatment Reminders Order Date Submit Date Provider Last Modified By Organization Details Last Modified Time Details Appointments Acute 20 2023 10:30A M Not available Not available Not available Annual Wellness Exam 2024 08:30A M Not available Not available Not available Lab None recorded. Referral None recorded. Procedures None recorded. Surgeries None recorded. Imaging None recorded. Medication Orders azelaic acid 15 % topical gel 2023 08 024 [id number], [address] [facility], [place], [address], 06/30/2024 09:28:22 Patient TargetsNo targets recorded. Patient InstructionsNo instructions recorded. Reason for Referral General Surgeon Referral for Inguinal hernia direct L inguinal hernia Referring Physician: Skye Nicole [facility], Encounter Date: 03/23/2024 Crossing Guard Referral for S kin lesion Referring Physician: Skye Nicole Family Medicine, Encounter Date: 03/23/2024 Problems Name Problem SNOMED Code Status Onset Date Resolution Date Notes Provider Name and Address Organization Details Recorded Time Anemia 503055046 Active 2023 MADIHA ESCOBAR, [facility] 4 12:37:15 Vitamin D deficiency 70131628 Active 2023 LISA ARANGO RN null, [facility] 4 12:37:15 Gastroesoph ageal reflux disease 957304016 Active 2023 LISA ARANGO RN null, [facility] 4 12:37:15 Insomnia 725967562 Active 2023 LISA ARANGO RN null, [facility] 4 12:37:15 Inguinal hernia 963527834 Active 2023 ANDERS MCCLELLAN MA null, [facility] 14:57:53 Amenorrhea 35979965 Active [address], [facility] [address], [facility] 4 09:55:28 Skin lesion 82812663 Active [address], [facility] [address], [facility] 09:56:32 Anxiety 64046669 Active [address], [facility] [address], [facility] 4 10:30:09 Rosacea 437527829 Active [address], [facility] [address], [facility] 4 09:27:46 Effusion of joint of left hand 0936011001182 09 Active [address], [facility] [address], [facility] 10:54:31 Problem Notes None recorded. Procedures Surgical History Date Name Laterality Status Provider Name and Address Organization Details Recorded Time 4 IUD Removal completed MD Ruben [address]OS [address], [facility] [address], [facility] 06/30/2024 09:36:00 4 Date of Last Mammogram completed MD Ruben [address], [facility] [address] 06/30/2024 09:33:49 2 Date of Last Pap Smear completed MD Ruben COBOS Dr, [address] 06/30/2024 09:33:20 2 Date of Last Colonoscopy completed MD Ruben [address], [facility] [address] [place] [address] 06/30/2024 09:34:12 biopsy of breast completed LISA ARANGO RN [facility] 12/10/2023 12:26:48 endoscopy completed ANDERS MCCLELLAN MA [facility], [facility] 03/23/2024 09:19:33 uterine myomectomy completed MD Ruben [address]OS [address], [facility] [address] [place] [address] 03/23/2024 10:29:45 Imaging Results None recorded. Procedure Notes None recorded. Medical Equipment None Reported. Allergies Allergen ID Allergen Name Allergen Category Reaction Reaction Severity Criticality Documentation Date Start Date Code Code System Note Provider Name and Address Organization Details Recorded Time 80700 prednison e medicatio n Not available Not available Not available 12/20/2023 8640 RxNorm Olesya Carpenter MA [facility], [facility] 11:39:12 Medications Name Sig Start Date Stop [...] and Address Organization Details Last Updated DateTime 165.1 cm 25 kg/m2 77766.8 6 g 97.8 [degF] 97 % 97 % 69 /min 18 /min 109 mm[Hg] 67 mm[Hg] BEAR BARTH MA [facility] 14:43:13 Social History Question Answer Notes LastModified by Organizat ion Details LastModified Time Tobacco Smoking Status Never Smoker Olesya Carpenter MA [facility], [facility] 12/20/2023 11:39:31 Do You Have An Advance Directive? Yes Pretty Sure She Has Them But Will Take Paper Work Today Just In Case She Does Not. Information not available 03/23/2024 Would You Say That, In General, Your Health Is Very Good [email or web address] Information not available 06/29/2024 Women Aged 18-50 - Would You Like To Become In The Next Year? (Female Patients Only) Yes [email or web address] Information not available 06/29/2024 How Often Does Anyone, Including Family, Physically Hurt You? Never Information not available 06/29/2024 How Often Does Anyone, Including Family, Insult Or Talk Down To You? Never [email or web address] Information no t available 06/29/2024 How Often Does Anyone, Including Family, Threaten You With Harm? Never Information not available 06/29/2024 How Often Does Anyone, Including Family, Scream Or Curse At You? Never Information not available 06/29/2024 Within The Past 12 Months, You Worried That Your Food Would Run Out Before You Got Money To Buy More. Never True [email or web address] Information n ot available 06/29/2024 Within The Past 12 Months, The Food You Bought Just Didn't Last And You Didn't Have Money To Get More. Never True Information n ot available 06/29/2024 How Hard Is It For You To Pay For The Very Basics Like Food, Housing, Medical Care, And Heating? Would You Say It Is: Not Hard At All [email or web address] Information not available 06/29/2024 In The Past 12 Months, Has Lack Of Reliable Transportation Kept You From Medical Appointments, Meetings, Work Or From Getting Things Needed For Daily Living? No Information not available 06/29/2024 What Is Your Housing Situation Today? I Have Housing. [email or web address] Information not available 06/29/2024 How Often In The Past Year Have You Used Marijuana (including Smoking, Vaping, Dabbing, Or Edibles)? Never [email or web address] Information not available 06/29/2024 How Often In The Past Year Have You Used Prescription Medications That Were Not Prescribed To You? Never [email or web address] Information n ot available 06/29/2024 How Often In The Past Year Have You Taken Your Own Prescription Medication More Than The Way It Was Prescribed Or For Different Reasons Than Its Intended Purpose? Never [email or web address] Information no t available 06/29/2024 How Often In The Past Year Have You Used Other Drugs (for Example, Heroin, Cocaine, Meth, Salvia, Inhalants)? Never [email or web address] Information not available 06/29/2024 Have You Ever Used IV Drugs? No [email or web address] Information not available 06/29/2024 Do You Have A Medical Power Of Instrument Tester? Yes Information not available 03/23/2024 What Was [...] PF, emmie-sucrose, 30 mcg/0.3 mL 03/23/2024 completed SKYE NICOLE MD [address], [facility] [address], [facility] 03/23/2024 10:30:29 Tdap 11/03/2021 completed MD Ruben [address], [facility] [address], [facility] 06/30/2024 09:32:09 Past Encounters Encounter ID Performer Location Encounter Start Date Encounter Closed Date Diagnosis/Indication Diagnosis SNOMED-CT Code Diagnosis ICD10 Code [id number] OLESYA CASSIDY STAFF CYTOTECHNOLOGIST [address],[facility] [address] [place] [address] 06/26/2024 17:05:01 06/26/2024 18:45:49 Acute cystitis 65760172 N30.01 [id number] SKYE NICOLE MD [address] [address] 06/29/2024 14:35:38 06/29/2024 15:15:58 Adult health examination 724541881 Z00.00 Rosacea 519889943 L71.9 Uses IUD (intrauterine device) contraception 276539709 Z97.5 Health Concerns Section Related Observation LastModified by Organization Detai ls LastModified Time None Recorded Concern Status LastModified by Organization Details LastModified Time None Recorded Payers Encounter Date Sequence Insurance Name Policy Number Policy Louis Covered Member ID Louis Member ID Guarantor Name 06/29/2024 1 [facility] [facility] [id number] Nabeel Brower [id number] Nabeel Brower Notes Date Note Type Note Provider Name and Address Organization Details Recorded Time 06/29/2024 text/html HPI Notes: Here for annual [...] neg. Last tetanus 11/03/21. Completed shingles at [facility]. SKYE NICOLE MD [address], [place], [address], [place] - [facility]. 06/30/2024 09:39:38 OBGyn Episode No OBEpisode recorded.
--- OUTSIDE RECORDS SUMMARY | 2024-07-20 18:35 | XMS_ITS | Encounter Summary ---
[place] [address] Care Team Providers Care Material Handler 1St Shift Name Role Phone Unavailable Primary Care Provider Unavailabl e Reason for Referral * Consultation (Routine) - Authorized Specialty Diagnoses / Procedures Referred By Danuta loving Referred To Contact General Surgery Diagnoses Direct left inguinal hernia Unilateral inguinal hernia without obstruction or gangrene, recurrence not specified ? SURGICAL INTERVENTION NEEDED PLEASE SCHED WITHIN 3-4 WEEKS Skye Nicole MD [address] [place] [address] [facility] [address] [address] Referral ID Status Reason Start Date Expiration Date Visits Requested Visits Authorized [id number] Authorized Consult, Test & Treat PCP Updated and/or Approved 03/31/2024 03/31/2025 6 6 Encounter Details Date Type Department Care Team (Latest Contact Info) Description 03/31/2024 Transcribe Orders eDH Incoming Referrals [phone] Skye Nicole MD [address] [place] [address] Direct left inguinal hernia; Unilateral [...] AM EDT Hospital Encounter [place] [address] Ruthy Calvin MD [facility] [place] [address] 09/05/2024 7:30 AM EDT - 09/05/2024 10:14 AM EDT Surgery [place] [address] Ruthy Calvin MD [facility] [address] [place] [address] LAPAROSCOPIC HERNIA REPAIR, INITIAL INGUINAL (WRVU 6.36) 10/06/2024 8:30 AM EST Office [place] [address] Ruthy Calvin MD [facility] [place] [address] 12/04/2024 3:30 PM EST Office Visit Dermatology at [address] [address] Helen Mary MD [facility] DR SHAINA [place] [address] Scheduled Procedures Name Priority Associated Diagnoses Date/Ti [...]
--- OUTSIDE RECORDS SUMMARY | 2024-07-20 18:35 | XMS_ITS | Encounter Summary ---
Author Organization [facility] Address [address] [place] [address] Care Team Providers Care Stranding Machine Operator Name Role Phone Unavailable Primary Care Provider Unavailabl e Encounter Details Date Type Department Care Team (Late st Contact Info) Description 07/20/[address] [facility] Pathology & Laboratory Medicine - [facility] [address] [place] [address] Outr Resulting Lab, Provider Social History Tobacco Use Types Packs/Day Years Used Date Smoking Tobacco: Never Assessed Sex and Gender Information Value Date Recorded Sex Assigned at Not on file Gender Identity Not on file Sexual Orientation Not on file documented as of this encounter Plan of Treatment Scheduled Orders Name Type Priority Associated Diagnoses Orde r Schedule LYME AB Lab Routine Ordered: 07/20 documented as of this encounter Visit Diagnoses Not on filedocumented in this encounter
--- OUTSIDE RECORDS SUMMARY | 2024-07-20 18:35 | XMS_ITS | Referral Summary ---
Author Organization Health system Address [address] [place] [address] Care Team Providers Care Business Improvement Manager Name Role Phone Unavailable Primary Care Provider Unavailabl e Encounters Date Type Department Care Team Description 07/20/2024 Lab Requisition [facility] Pathology & Laboratory Medicine - [facility] [address] [place] [address] Outr Resulting Lab, Provider from Last 3 [...] C Antibody Negative Negative 03/24/2024 9:54 EDT [facility] Blood VENOUS BLOOD / Unknown 03/23/2024 10:00 EDT 03/23/2024 22:18 EDT Provider Outr Resulting Lab CHEMISTRY & BLOOD GAS ORDERABLES [facility] [address] [place] [address] from Last 3 Months or Most Recently Relevant to Health Maintenance
--- OUTSIDE RECORDS SUMMARY | 2024-07-20 18:35 | XMS_ITS | Encounter Summary ---
Author Organization [facility] Address [facility] [place] [address] Care Team Providers Care Auto Mechanic Name Role Phone Skye Nicole MD Primary Care Provider [phone] Reason for Visit * Reason Comments Follow-up Encounter Details Date Type Department Care Team (Late st Contact Info) Description 06/26/2024 1:45 PM EDT Office Visit [place] [address] Ruthy Calvin MD [facility] [place] [address] Non-recurrent unilateral inguinal hernia without obstruction or [...] AM EDT Hospital Encounter [place] [address] Ruthy Calvin MD [facility] [place] [address] 09/05/2024 7:30 AM EDT - 09/05/2024 10:14 AM EDT Surgery [place] [address] Ruthy Calvin MD [facility] [place] [address] LAPAROSCOPIC HERNIA REPAIR, INITIAL INGUINAL (WRVU 6.36) 10/06/2024 8:30 AM EST Office Visit [place] [address] Ruthy Calvin MD [facility] [place] [address] 12/04/2024 3:30 PM EST Office Visit Dermatology at [facility] [address] [place] [address] Helen Mary MD [facility] DR [place]AIN[place] [address] Scheduled Procedures Name Priority Associated Diagnoses Date/Ti [...] gangrene documented in this encounter Care Teams Auto Mechanic Relationship Specialty Start Date End Date Skye Nicole MD [address] [place] [address] PCP - General Family Medicine 04/11/24 documented as of this encounter
[2024-07-21 08:59] LABS: Lyme Ab w Rflx to Lyme Confirm Negative (Negative)
== END 2024-07-20 18:31 | disposition home or self-care (01) ==
LOC: NCHCN 18:30
PROVIDERS: Visit Provider Family Medicine
DX: M25.442 Effusion, left hand (principal)
CPT/HCPCS: 85025; 86140; 86618

== ENCOUNTER 2024-07-21 10:21 | Outpatient (CLI) | payer BC, SELFPAY ==
--- NOTE | 2024-07-21 13:33 | DI.RAD_ITS ---
Exam(s) XR HAND LT COMPLETE EXAM: XR HAND LT COMPLETE CLINICAL HISTORY: EFFUSION LEFT HAND M25.442. TECHNIQUE: 2D digital imaging was performed of the left hand. Three views were obtained. AP, later al and oblique views were obtained. COMPARISON: No exams were available for comparison FINDINGS: BONES: No acute fracture is present. No bony destructive lesion is seen. JOINTS: No dislocation present. The joint spaces are well maintained. SOFT TISSUE: Normal. IMPRESSION: Unremarkable radiographs of the left hand. DATA REPOSITORY: RADIATION DOSE DELIVERED:
== END 2024-07-21 10:41 ==
LOC: DI 10:22
PROVIDERS: Visit Provider Family Medicine
DX: M25.442 Effusion, left hand (principal)
CPT/HCPCS: 73130

== ENCOUNTER 2025-03-05 15:34 | Outpatient (CLI) | payer BC, SELFPAY ==
--- NOTE | 2025-03-05 | DI.RAD_ITS ---
Exam(s) XR SHOULDER LT COMPLETE 2+V EXAM: XR SHOULDER LT COMPLETE 2+V CLINICAL HISTORY: Lt shoulder pain, M25.512. TECHNIQUE: 2D digital imaging was performed. COMPARISON: No exams were available for comparison FINDINGS: Five views. There is a minimally displaced fracture of the greater tuberosity on the lateral aspect of the ana l head. No other fractures. No dislocation the glenohumeral and AC joints. The ipsilateral clavicl e and coracoid process appear intact Bone density normal. No osseous lesions. IMPRESSION: Minimally displaced fracture of the greater tuberosity on the lateral aspect of the humeral head. Pl ease note that this is the insertion site of the rotator cuff muscles DATA REPOSITORY: RADIATION DOSE DELIVERED:
--- NOTE | 2025-03-05 16:32 | DI.VRAD_ITS ---
PROCEDURE INFORMATION: Exam: XR Left Shoulder Exam date and time: 03/05/2025 3:35 PM Age: 54 years old Clinical indication: Pain; Shoulder; Left TECHNIQUE: Imaging protocol: Radiologic exam of the left shoulder. Views: 2 or more views. COMPARISON: CT HEAD CERV SPINE FACIAL WO 12/25/2023 7:36 PM FINDINGS: Bones/joints: Nondisplaced acute fracture of the greater tuberosity of the left humerus. No shoulder dislocation. Soft tissues: There is soft tissue swelling noted. IMPRESSION: Greater tuberosity fracture, nondisplaced. Dictated and Authenticated by: Kati Seymour MD. Orderin ANGE DACOSTA MD
== END 2025-03-05 15:54 ==
PROVIDERS: Visit Provider Nurse Practitioner Family
DX: S42.252A Displaced fracture of greater tuberosity of left humerus, initial encounter for closed fracture (principal); X58.XXXA Exposure to other specified factors, initial encounter
CPT/HCPCS: 73030

== ENCOUNTER 2025-03-14 15:10 | Outpatient (CLI) | payer BC, SELFPAY ==
--- NOTE | 2025-03-14 14:30 | DI.RAD_ITS ---
Exam(s) XR SHOULDER LT COMPLETE 2+V EXAM: XR SHOULDER LT COMPLETE 2+V INDICATION: LEFT SHOULDER PAIN. COMPARISON: CR,XR XR SHOULDER LT COMPLETE 2+V from 03/05/2025 TECHNIQUE: 2D digital imaging was performed. Two views. FINDINGS: No change in alignment of the greater tuberosity fracture. No new abnormalities. DATA REPOSITORY: RADIATION DOSE DELIVERED:
== END 2025-03-14 15:11 | disposition home or self-care (01) ==
LOC: DIORS 15:10
PROVIDERS: PCP Advanced Practice Midwife; Visit Provider Student in an Organized Health Care Education/Training Program
DX: M25.512 Pain in left shoulder (principal); S42.202A Unspecified fracture of upper end of left humerus, initial encounter for closed fracture
CPT/HCPCS: 73030

== ENCOUNTER 2025-04-10 08:45 | Outpatient (CLI) | payer BC, SELFPAY ==
--- NOTE | 2025-04-10 08:00 | DI.RAD_ITS ---
Exam(s) XR SHOULDER LT COMPLETE 2+V EXAM: XR SHOULDER LT COMPLETE 2+V CLINICAL HISTORY: F/U FRACTURE. TECHNIQUE: 2D digital imaging was performed. COMPARISON: CR,XR XR SHOULDER LT COMPLETE 2+V from 03/05/2025 CR XR SHOULDER LT COMPLETE 2+V from 03/14/2025 FINDINGS: 3 views Again noted is the greater tuberosity fracture of the humerus head. There is mild displacement which appears slightly more than previous. The fracture fragment appears slightly more medially on the pr esent Grashey view. No new additional fractures evident. IMPRESSION: Slight medial displacement of the main fracture fragment of the greater tuberosity fracture. DATA REPOSITORY: RADIATION DOSE DELIVERED:
== END 2025-04-10 08:46 | disposition home or self-care (01) ==
LOC: DIORS 08:46
PROVIDERS: PCP Advanced Practice Midwife; Visit Provider Student in an Organized Health Care Education/Training Program
DX: S42.202A Unspecified fracture of upper end of left humerus, initial encounter for closed fracture (principal)
CPT/HCPCS: 73030

== ENCOUNTER 2025-05-15 08:13 | Outpatient (CLI) | payer BC, SELFPAY ==
--- NOTE | 2025-05-15 08:00 | DI.RAD_ITS ---
Exam(s) XR SHOULDER LT COMPLETE 2+V EXAM: XR SHOULDER LT COMPLETE 2+V CLINICAL HISTORY: F/U FRACTURE. TECHNIQUE: 2D digital imaging was performed. Three views. COMPARISON: CR XR SHOULDER LT COMPLETE 2+V from 03/14/2025 CR XR SHOULDER LT COMPLETE 2+V from 04/10/2025 FINDINGS: BONES: Stable alignment of greater tuberosity fracture without increase in degree of separation of the fracture fragment. No new abnormalities.. No bony destructive lesion is seen. JOINTS: No dislocation present. SOFT TISSUE: Normal. IMPRESSION: Stable alignment greater tuberosity fracture. DATA REPOSITORY: RADIATION DOSE DELIVERED:
== END 2025-05-15 08:14 | disposition home or self-care (01) ==
LOC: DIORS 08:13
PROVIDERS: PCP Advanced Practice Midwife; Visit Provider Student in an Organized Health Care Education/Training Program
DX: S42.202A Unspecified fracture of upper end of left humerus, initial encounter for closed fracture (principal)
CPT/HCPCS: 73030